=== PATIENT | female | born 1985 | race Caucasian/White ===

== ENCOUNTER 2021-09-20 16:27 | Emergency (ER) | payer OTHER, SELFPAY ==
[2021-09-20 16:35] VITALS: BP 129/87; PULSE 97; RESP 18; TEMP 36.4; O2SAT 100
--- NOTE | 2021-09-20 16:53 | ED.SKABFB ---
HPI - Skin/Abscess/Foreign Bdy General Chief complaint: Skin/Abscess/Foreign Body Stated complaint: swelling in face Source: patient Mode of arrival: ambulatory History of Present Illness HPI narrative: This is a 35-year-old female with history of hep C presents with a lesion on the right side of her face that is firm tender warm to touch with no drainage has had low-grade fevers has tried [id number] ibuprofen with some moderate relief there is no no drainage from the the abscess site there is no submandibular swelling no nausea vomiting no blurry vision. Onset (ago): day(s) Location: face Severity: mild Related Data Home Medications Medication Instructions Recorded Confirmed insulin glargine 100 unit/mL (3 25 ea subcut BID 09/20/21 09/20/21 mL) subcutaneous pen (Basaglar KwikPen U-100 Insulin) Allergies Allergy/AdvReac Type Severity Reaction Status Date / Time cyclobenzaprine [Flexeril] AdvReac Intermediate Fatigued Verified 09/20/21 16:43 Hydrocodone/Acetaminophen AdvReac Intermediate Nausea Uncoded 09/20/21 16:43 Review of Systems Review of Systems: All systems reviewed & are unremarkable except as noted in HPI and below PMFSH Past Medical History Medical History Hepatitis C Social History Social History Smoking status: Current every day smoker Exam Const: General: healthy appearing and no acute distress Limitations: no limitations HENMT: Head: normal to inspection Other: small firm lesion right side of face that is tender with currently no drainage and warm to touch. Eyes: Conjunctivae: conjunctivae normal Pupils: Equal, round and reactive pupils present EOM: EOMs intact bilaterally Direct Ophthalmoscopy: no photophobia Neck: Neck: normal visual inspection, no lymphadenopathy and lymphadenopathy Chest: Chest palpation & inspection: normal inspection of the chest Resp: Effort & Inspection: normal respiratory effort Auscultation: clear to auscultation bilaterally Cardio: Rate: regular rate Rhythm: regular rhythm GI: Auscultation: normal bowel sounds Skin: Other: Firm lesion/ abscess right side of face that is warm and tender to touch with currently no drainage. Neuro: General: patient oriented x3, moves all extremities, no meningeal signs and no focal motor deficits Extrem: General: normal to inspection Psych: Mental Status: mental status grossly normal Course TALCER/PA Physician Supervision Patient received a dose of ceftriaxone 1g IM advised to take medicine and follow-up with primary care physician if symptoms persist or worsen. Vital Signs Vital signs: Vital Signs Temperature 36.4 C L 09/20/21 16:35 Pulse Rate 97 09/20/21 16:35 Respiratory Rate 18 09/20/21 16:35 Blood Pressure 129/87 09/20/21 16:35 Pulse Oximetry 100 09/20/21 16:35 Oxygen Delivery Room Air 09/20/21 16:35 Temperature 36.4 C L 09/20/21 16:35 Pulse Rate 97 09/20/21 16:35 Respiratory Rate 18 09/20/21 16:35 Blood Pressure 129/87 09/20/21 16:35 Pulse Oximetry 100 09/20/21 16:35 Oxygen Delivery Room Air 09/20/21 16:35 Critical Care Time Critical Care Time Critical Care Time: No Discharge Plan Discharge Clinical Impression: Abscess of skin or subcutaneous tissue Qualifiers: Site of cutaneous abscess: face Qualified Code(s): L02.01 - Cutaneous abscess of face Cellulitis Qualifiers: Site of cellulitis: face Qualified Code(s): L03.211 - Cellulitis of face Patient Disposition: Home, Self-Care Condition: Stable Instructions: Antibiotic Form, Cellulitis (ED), Abscess (ED) Additional Instructions: Take medicine as prescribed and follow-up with primary care physician if symptoms persist or worsen. Prescriptions: New amoxicillin-pot clavulanate [Augmentin] 500-125 mg tablet 1 tablet PO TID Qty: 30 0RF mupirocin 2 %
[2021-09-20] MEDS: cefTRIAXone 1 GM VIAL IM (16:55)
== END 2021-09-20 17:03 | disposition home or self-care (01) ==
PROVIDERS: Emergency Provider Emergency Medicine; PCP Nurse Practitioner
DX: L02.01 Cutaneous abscess of face (principal); Z72.0 Tobacco use
CPT/HCPCS: 96372; 99283; J0696

== ENCOUNTER 2021-11-21 23:27 | Emergency (ER) | payer OTHER, SELFPAY ==
[2021-11-21 23:43] VITALS: BP 150/95; PULSE 109; RESP 16; TEMP 36.6; O2SAT 99
--- NOTE | 2021-11-21 23:44 | ED.SKABFB ---
HPI - Skin/Abscess/Foreign Bdy General Chief complaint: Skin/Abscess/Foreign Body Stated complaint: Rash Time Seen by Provider: 11/21/21 23:44 Source: patient Mode of arrival: ambulatory History of Present Illness HPI narrative: 35-year-old female with a history of methamphetamine abuse, smoker, hepatitis-C, diabetes mellitus, HPV, recurrent cellulitis, chronic anemia from menorrhagia presents to the ER with -- multiple 1-2 cm papule/plaques which are painful. She presents with 2 papules over her right suprascapular region, Right foot 2nd toe and 1 in the left medial thigh. She has multiple scars of forearms and legs from eruptive lesions with subsequent itching. she has had these lesions for months. -- decreased sensation over the soles of her feet MD complaint: rash Onset (ago): month(s) Tetanus up to date: yes Location: generalized Severity: mild Quality: burning and aching Pain Consistency: constant Relieving factors: none Exacerbating factors: none Context: none Associated symptoms: denies other symptoms Treatments prior to arrival: none Related Data Home Medications Medication Instructions Recorded Confirmed insulin glargine 100 unit/mL (3 100 unit subcut DAILY 11/21/21 11/21/21 mL) subcutaneous pen (Basaglar KwikPen U-100 Insulin) insulin lispro 100 unit/mL 100 unit subcut DAILY 11/21/21 11/21/21 subcutaneous pen (Humalog KwikPen (U-100) Insulin) Allergies Allergy/AdvReac Type Severity Reaction Status Date / Time cyclobenzaprine [Flexeril] AdvReac Intermediate Fatigued Verified 11/21/21 23:51 Hydrocodone/Acetaminophen AdvReac Intermediate Nausea Uncoded 11/21/21 23:51 Review of Systems Review of Systems: All systems reviewed & are unremarkable except as noted in HPI and below Constitutional: Constitutional: Reports as per HPI, Reports no additional constitutional complaints and Reports weakness Eyes: Eyes: Reports as per HPI and Reports no additional eye complaints ENT: Reports system reviewed and no additional complaints, except as documented and Reports as per HPI Cardiovascular: Cardiovascular: Reports as per HPI and Reports no additional cardiovascular complaints Respiratory: Respiratory: Reports as per HPI and Reports no additional respiratory complaints Gastrointestinal: Gastrointestinal: Reports as per HPI and Reports no additional gastrointestinal complaints Genitourinary: Genitourinary: Reports no additional female genitourinary complaints, Reports as per HPI and Reports abnormal vaginal bleeding Comments: status post BTL Menorrhagia. LMP 2 weeks ago. Musculoskeletal: Musculoskeletal: Reports no additional musculoskeletal complaints and Reports as per HPI Integumentary/Breasts: Comments: Multiple healed scars of forearms and legs. Multiple 1-2 cm papules/ plaques which are painful and itchy. They are generalized. some are ulcerated in the center. Neurologic: Reports system reviewed and no additional complaints, except as documented and Reports as per HPI Psychiatric: Psychiatric: Reports no additional psychiatric complaints and Reports as per HPI Endocrine: Endocrine: Reports no additional endocrine complaints and Reports as per HPI Comments: She has diabetes mellitus for which she takes Humalog 12 units with each meal and Basaglar 25 units b.i.d. Hematologic/Lymphatic: Hematologic/Lymphatic: Reports no additional hematologic/lymphatic complaints and Reports as per HPI Allergic/Immunologic: Allergic/Immunologic: Reports no additional allergic/immunologic complaints and Reports as per HPI [facility] Past Medical History Medical History (Updated 11/22/21 @ 00:39 by Andrzej De La Torre MD) Hepatitis C Surgical History Surgical History (Updated 11/22/21 @ 00:35 by Andrzej De La Torre MD) History of bilateral tubal ligation Social History Social History Smoking status: Current every day smoker Ex
[2021-11-22 00:06] LABS: Basophils Absolute Auto 0.06 K/mm3 (0.00-0.10); Basophils Percent Auto 1.1 % (0.0-1.0); Eosinophils Absolute Auto 0.16 K/mm3 (0.02-0.50); Eosinophils Percent Auto 2.9 % (1.0-6.0); Hematocrit 26.4 % (35.0-49.0); Hemoglobin 7.5 g/dL (12.0-15.0); Immature Granulocyte Absolute 0.01 K/mm3 (0.00-0.00); Immature Granulocyte Percent A 0.2 % (0.0-0.0); Lymphocytes Absolute Auto 2.18 K/mm3 (1.10-4.50); Mean Corpuscular HGB Conc 28.4 g/dL (32.0-36.0); Mean Corpuscular Hemoglobin 19.3 pg (27.0-31.0); Mean Corpuscular Volume 67.9 fL (78.0-102.0); Mean Platelet Volume 8.9 fl (9.2-11.8); Monocytes Absolute Auto 0.38 K/mm3 (0.10-0.90); Neutrophils Absolute Auto 2.7 K/mm3 (1.7-7.2); Neutrophils Percent Auto 48.8 % (50.0-70.0); Platelet Count Result 334 K/mm3 (150-420); Red Blood Count 3.89 M/mm3 (4.20-5.40); Red Cell Distribution Width 15.9 % (11.6-14.4); White Blood Count 5.5 K/mm3 (4.8-10.8)
[2021-11-22 00:24] LABS: Add Urine Microscopic? YES; Appearance Urine Slightly Cloudy (Clear); Bilirubin Urine Negative (Negative); Blood Urine Negative (Negative); Color Urine Light Yellow (Yellow); Glucose Urine UA 3+ (Negative); Ketones Urine Trace (Negative); Leukocyte Esterase Ur Negative (Negative); Nitrate Urine Positive (Negative); Protein Urine Negative (Negative); Urobilinogen Urine 0.2 mg/dL (0.2-1.0); pH Urine 6.5 (5.0-8.0)
[2021-11-22 00:26] LABS: Alanine Aminotransferase 55 U/L (14-59); Albumin Level 3.3 g/dL (3.4-5.0); Alkaline Phosphatase 88 U/L (46-116); Anion Gap 7 mmol/L (8-16); Aspartate Amino Transferase 29 U/L (15-37); Bilirubin,Total 0.2 mg/dL (0.00-1.00); Blood Urea Nitrogen 11 mg/dL (7-18); Calcium 8.2 mg/dL (8.5-10.1); Carbon Dioxide 26 mmol/L (21-32); Chloride 103 mmol/L (98-108); Estimated Glomerular Filt Rate > 60; Glucose 280 mg/dL (70-99); Osmolality Calculated 291 mOsm/kg (285-295); Potassium 3.7 mmol/L (3.5-5.1); Sodium 136 mmol/L (136-145); Total Protein 6.6 g/dL (6.4-8.2)
[2021-11-22 00:28] LABS: RBC Urine 0-2 /hpf (0-2)
[2021-11-22 00:29] LABS: Bacteria Urine 4+ /hpf; Pregnancy On Board Control Positive; Squamous Epithelial Cell Urine Rare /hpf (Few); Urine Pregnancy Test Negative
[2021-11-22 00:47] LABS: Magnesium 1.7 mg/dL (1.8-2.4)
[2021-11-22 00:58] VITALS: BP 132/88; PULSE 105; RESP 18; O2SAT 98
== END 2021-11-22 00:59 | disposition home or self-care (01) ==
PROVIDERS: Emergency Provider Internal Medicine Critical Care Medicine; PCP Nurse Practitioner
DX: D64.9 Anemia, unspecified (principal); N92.0 Excessive and frequent menstruation with regular cycle; N39.0 Urinary tract infection, site not specified; E11.65 Type 2 diabetes mellitus with hyperglycemia; R21 Rash and other nonspecific skin eruption; L98.9 Disorder of the skin and subcutaneous tissue, unspecified
CPT/HCPCS: 36415; 80053; 81001; 81025; 83735; 85025; 99283

== ENCOUNTER 2022-01-25 17:29 | Outpatient (CLI) | payer OTHER, SELFPAY ==
[2022-01-25 18:04] LABS: Basophils Absolute Auto 0.05 K/mm3 (0.00-0.10); Basophils Percent Auto 0.8 % (0.0-1.0); Eosinophils Absolute Auto 0.13 K/mm3 (0.02-0.50); Eosinophils Percent Auto 2.1 % (1.0-6.0); Hematocrit 28.9 % (35.0-49.0); Hemoglobin 7.8 g/dL (12.0-15.0); Immature Granulocyte Absolute 0.02 K/mm3 (0.00-0.00); Immature Granulocyte Percent A 0.3 % (0.0-0.0); Lymphocytes Absolute Auto 1.67 K/mm3 (1.10-4.50); Lymphocytes Percent Auto 26.9 % (18.0-42.0); Mean Corpuscular Hemoglobin 17.8 pg (27.0-31.0); Mean Corpuscular Volume 66.1 fL (78.0-102.0); Mean Platelet Volume 9.8 fl (9.2-11.8); Monocytes Absolute Auto 0.35 K/mm3 (0.10-0.90); Monocytes Percent Auto 5.6 % (2.0-11.0); Neutrophils Percent Auto 64.3 % (50.0-70.0); Platelet Count Result 383 K/mm3 (150-420); Red Blood Count 4.37 M/mm3 (4.20-5.40); Red Cell Distribution Width 15.6 % (11.6-14.4); White Blood Count 6.2 K/mm3 (4.8-10.8)
[2022-01-25 18:22] LABS: Alanine Aminotransferase 74 U/L (14-59); Albumin Level 3.6 g/dL (3.4-5.0); Alkaline Phosphatase 93 U/L (46-116); Anion Gap 9 mmol/L (8-16); Aspartate Amino Transferase 45 U/L (15-37); Bilirubin,Total 0.1 mg/dL (0.00-1.00); Blood Urea Nitrogen 14 mg/dL (7-18); Calcium 8.5 mg/dL (8.5-10.1); Carbon Dioxide 27 mmol/L (21-32); Chloride 97 mmol/L (98-108); Cholesterol 182 mg/dL (0-200); Estimated Glomerular Filt Rate > 60; Glucose 350 mg/dL (70-99); HDL Direct 51 mg/dL (40-60); LDL Cholesterol Calculated 74 mg/dL (<130); Osmolality Calculated 290 mOsm/kg (285-295); Potassium 3.7 mmol/L (3.5-5.1); Sodium 133 mmol/L (136-145); Total Protein 7.6 g/dL (6.4-8.2); Triglycerides 283 mg/dL (0-150)
[2022-01-25 18:56] LABS: HIV 1 P24 AG Negative (Negative); HIV 1/2 AB Negative (Negative)
[2022-01-29 17:42] LABS: RPR Screen Non-Reactive (Non-Reactive)
== END 2022-01-25 17:30 | disposition home or self-care (01) ==
LOC: CHSLAB 17:32
PROVIDERS: PCP Nurse Practitioner; Visit Provider Nurse Practitioner
DX: Z11.3 Encounter for screening for infections with a predominantly sexual mode of transmission (principal); B19.20 Unspecified viral hepatitis C without hepatic coma; E10.65 Type 1 diabetes mellitus with hyperglycemia; F15.10 Other stimulant abuse, uncomplicated; F31.81 Bipolar II disorder; L01.00 Impetigo, unspecified; Z13.31 Encounter for screening for depression; Z68.21 Body mass index [BMI] 21.0-21.9, adult
CPT/HCPCS: 36415; 80053; 80061; 83036; 85025; 86592; 86703; 87491; 87591

== ENCOUNTER 2022-03-19 11:14 | Emergency (ER) | payer OTHER, SELFPAY ==
[2022-03-19 11:15] VITALS: BP 141/82; PULSE 103; PULSE 108; RESP 18; TEMP 36.8; O2SAT 100
[2022-03-19 11:29] VITALS: BP 141/82; PULSE 108; RESP 18; TEMP 36.8; O2SAT 100
--- NOTE | 2022-03-19 11:34 | ED.LOWEXIN ---
HPI - Extremity Injury (Lower) General Chief Complaint: Extremity Injury, Lower Stated Complaint: LEG IS SWOLLEN Time Seen by Provider: 03/19/22 11:29 History of Present Illness HPI Narrative: pt presents with rednesss and tenderness to the front of her right blackburn for 3 days. Pt denies injury. Pt is diabetic and has been taking insulin as directed but not checking her sugars routinely. Pt denies fever or vomiting. Pt has no pain to posterior calf Related Data Home Medications Medication Instructions Recorded Confirmed insulin glargine 100 unit/mL (3 100 unit subcut DAILY 11/21/21 03/19/22 mL) subcutaneous pen (Basaglar KwikPen U-100 Insulin) insulin lispro 100 unit/mL 100 unit subcut DAILY 11/21/21 03/19/22 subcutaneous pen (Humalog KwikPen (U-100) Insulin) lamotrigine 25 mg tablet 25 mg PO DAILY 03/19/22 03/19/22 Allergies Allergy/AdvReac Type Severity Reaction Status Date / Time cyclobenzaprine [Flexeril] AdvReac Intermediate Fatigued Verified 03/19/22 11:27 Hydrocodone/Acetaminophen AdvReac Intermediate Nausea Uncoded 11/21/21 23:51 Review of Systems Review of Systems: All systems reviewed & are unremarkable except as noted in HPI and below PMFSH Past Medical History Medical History (Updated 03/19/22 @ 11:39 by Stephanie Shah III, DO) Hepatitis C Surgical History Surgical History (Updated 11/22/21 @ 00:35 by Andrzej De La Torre MD) History of bilateral tubal ligation Social History Social History Smoking status: Current every day smoker Exam Const: General: healthy appearing Nutritional Appearance: well nourished Orientation/consciousness: patient oriented x3 Limitations: no limitations Eyes: Conjunctivae: conjunctivae normal EOM: EOMs intact bilaterally Resp: Effort & Inspection: normal respiratory effort Cardio: Rate: regular rate Rhythm: regular rhythm GI: GI Palp: Yes Soft to palpation Auscultation: normal bowel sounds Skin: Other: mild erythema to anterior, no posterior tenderness and no swelling to right leg Neuro: General: patient oriented x3 Cranial nerves: Yes Nystagmus not present Speech: normal speech Extrem: General: no clubbing, cyanosis or edema and no pedal edema Psych: Mental Status: mental status grossly normal Affect: normal affect Attitude: cooperative Course Vital Signs Vital signs: Vital Signs Temperature 98.2 F 03/19/22 11:15 Pulse Rate 108 H 03/19/22 11:15 Respiratory Rate 18 03/19/22 11:15 Blood Pressure 141/82 H 03/19/22 11:15 Pulse Oximetry 100 03/19/22 11:15 Oxygen Delivery Room Air 03/19/22 11:15 Temperature 98.2 F 03/19/22 11:29 Pulse Rate 108 H 03/19/22 11:29 Respiratory Rate 18 03/19/22 11:29 Blood Pressure 141/82 H 03/19/22 11:29 Pulse Oximetry 100 03/19/22 11:29 Oxygen Delivery Room Air 03/19/22 11:29 Discharge Plan Discharge Clinical Impression: Cellulitis Patient Disposition: Home, Self-Care Condition: Stable Instructions: Antibiotic Form, Cellulitis (ED) Prescriptions: New cephalexin 500 mg capsule 500 mg PO Q8H Qty: 30 0RF No Action lamotrigine 25 mg tablet 25 mg PO DAILY insulin lispro [Humalog KwikPen Insulin] 100 unit/mL insulin pen 100 unit SUBCUT DAILY insulin glargine [Basaglar KwikPen U-100 Insulin] 100 unit/mL (3 mL) insulin pen 100 unit SUBCUT DAILY Follow-up/Referrals: Damien,ZAYNAB Bro-BC [Primary Care Provider] -
[2022-03-19 23:29] LABS: Glucose Point of Care 84 mg/dl (65-105)
== END 2022-03-19 11:55 | disposition home or self-care (01) ==
LOC: CHSED 11:47
PROVIDERS: Emergency Provider Emergency Medicine; PCP Nurse Practitioner
DX: L03.115 Cellulitis of right lower limb (principal)
CPT/HCPCS: 82948; 99283

== ENCOUNTER 2022-05-10 16:31 | Emergency (ER) | payer OTHER, SELFPAY ==
[2022-05-10 16:31] VITALS: BP 119/79; PULSE 99; RESP 18; TEMP 36.5; O2SAT 100
[2022-05-10 16:39] VITALS: BP 119/79; PULSE 99; RESP 16; TEMP 36.5; O2SAT 100
--- NOTE | 2022-05-10 16:48 | ED.DENTAL ---
HPI - Dental/Oral General Chief complaint: Dental/Oral Stated complaint: R side tooth pain and facial swelling Time Seen by Provider: 05/10/22 16:48 Source: patient Mode of arrival: ambulatory Limitations: no limitations History of Present Illness HPI Narrative: 36-year-old female with a history of methamphetamine abuse, chronic anemia, diabetes mellitus, hepatitis-C, recurrent cellulitis presents to the ER with -- right upper jaw pain/dental pain. the patient is scheduled to see the dentist for dental extraction. MD Complaint: tooth pain ( Extensive dental caries with extensive missing crowns except 4 Which is decayed and carious) Location: Tooth # (4--) Onset (ago): day(s) Severity: moderate Relieving factors: nothing Exacerbating factors: nothing Context: history of dental caries Associated symptoms: gum swelling Treatment prior to arrival: none Related Data Home Medications Medication Instructions Recorded Confirmed insulin glargine 100 unit/mL (3 100 unit subcut DAILY 11/21/21 05/10/22 mL) subcutaneous pen (Basaglar KwikPen U-100 Insulin) insulin lispro 100 unit/mL 100 unit subcut DAILY 11/21/21 05/10/22 subcutaneous pen (Humalog KwikPen (U-100) Insulin) lamotrigine 25 mg tablet 25 mg PO DAILY 03/19/22 05/10/22 Allergies Allergy/AdvReac Type Severity Reaction Status Date / Time cyclobenzaprine [Flexeril] AdvReac Intermediate Fatigued Verified 05/10/22 16:42 Hydrocodone/Acetaminophen AdvReac Intermediate Nausea Uncoded 05/10/22 16:42 Review of Systems Review of Systems: All systems reviewed & are unremarkable except as noted in HPI and below Constitutional: Constitutional: Reports as per HPI and Reports no additional constitutional complaints Eyes: Eyes: Reports as per HPI and Reports no additional eye complaints ENT: Reports system reviewed and no additional complaints, except as documented and Reports as per HPI Comments: extensive dental caries with right upper jaw/ dental pain Cardiovascular: Cardiovascular: Reports as per HPI and Reports no additional cardiovascular complaints Respiratory: Respiratory: Reports as per HPI and Reports no additional respiratory complaints Gastrointestinal: Gastrointestinal: Reports as per HPI and Reports no additional gastrointestinal complaints Genitourinary: Genitourinary: Reports no additional female genitourinary complaints and Reports as per HPI Musculoskeletal: Musculoskeletal: Reports no additional musculoskeletal complaints and Reports as per HPI Integumentary/Breasts: Skin/Breast: Reports system reviewed and no additional complaints, except as docu and Reports as per HPI Neurologic: Reports system reviewed and no additional complaints, except as documented and Reports as per HPI Psychiatric: Psychiatric: Reports no additional psychiatric complaints and Reports as per HPI Endocrine: Endocrine: Reports no additional endocrine complaints and Reports as per HPI Hematologic/Lymphatic: Hematologic/Lymphatic: Reports no additional hematologic/lymphatic complaints and Reports as per HPI Allergic/Immunologic: Allergic/Immunologic: Reports no additional allergic/immunologic complaints and Reports as per HPI [facility] Past Medical History Medical History Hepatitis C Surgical History Surgical History History of bilateral tubal ligation Social History Social History Smoking status: Current every day smoker Exam Const: General: no acute distress Nutritional Appearance: well nourished Orientation/consciousness: patient oriented x3 Limitations: no limitations HENMT: Head: normal to inspection Ears: external ears normal Face/Nose/Sinus: Normal external nose present Face and sinus: normal facial exam Mouth: Yes Normal oral and palatal mucosa present Teeth and gingiva: dentition
[2022-05-10] MEDS: HYDROcodone/acetaminophen (*CRX) 5-325 MG TABLET 1 TAB PO (17:24)
[2022-05-10 17:32] VITALS: BP 121/68; PULSE 100; RESP 16; TEMP 36.4; O2SAT 100
== END 2022-05-10 17:34 | disposition home or self-care (01) ==
PROVIDERS: Emergency Provider Internal Medicine Critical Care Medicine; PCP Nurse Practitioner
DX: K02.9 Dental caries, unspecified (principal); K08.89 Other specified disorders of teeth and supporting structures; E11.9 Type 2 diabetes mellitus without complications; Z79.4 Long term (current) use of insulin; Z86.19 Personal history of other infectious and parasitic diseases; F17.200 Nicotine dependence, unspecified, uncomplicated
CPT/HCPCS: 99283; A9270

== ENCOUNTER 2022-07-08 04:35 | Emergency (ER) | payer OTHER, SELFPAY ==
[2022-07-08 04:35] VITALS: BP 140/100; PULSE 87; RESP 18; TEMP 36.6; O2SAT 100
[2022-07-08] MEDS: methylPREDNISolone SOD SUCC 125 MG VIAL IM (04:52)
--- NOTE | 2022-07-08 04:58 | ED.ALLEREA ---
HPI - Allergic Reaction General Chief complaint: Allergic Reaction Stated complaint: wrist are swollen Time Seen by Provider: 07/08/22 04:57 Source: patient and RN notes reviewed Mode of arrival: ambulatory Limitations: no limitations History of Present Illness complaint: allergic reaction Onset (ago): day(s) (3) Exposure: other (new gloves at work) Symptoms: itching and other (swelling of hands Nothing seems to make it better or worse) Severity: moderate Treatment prior to arrival: benadryl Previous Allergic Reaction History: none Related Data Home Medications Medication Instructions Recorded Confirmed insulin glargine 100 unit/mL (3 35 unit subcut BID 11/21/21 07/08/22 mL) subcutaneous pen (Basaglar KwikPen U-100 Insulin) insulin lispro 100 unit/mL 12 unit subcut TIDWMEAL 11/21/21 07/08/22 subcutaneous pen (Humalog KwikPen (U-100) Insulin) hydroxyzine pamoate 25 mg capsule 25 mg PO PRN PRN Anxiety 07/08/22 07/08/22 lamotrigine 200 mg tablet 200 mg PO DAILY 07/08/22 07/08/22 Allergies Allergy/AdvReac Type Severity Reaction Status Date / Time cyclobenzaprine [Flexeril] AdvReac Intermediate Fatigued Verified 05/10/22 16:42 Hydrocodone/Acetaminophen AdvReac Intermediate Nausea Uncoded 05/10/22 16:42 Review of Systems Review of Systems: All systems reviewed & are unremarkable except as noted in HPI and below PMFSH Past Medical History Medical History Hepatitis C Surgical History Surgical History History of bilateral tubal ligation Social History Social History Smoking status: Current every day smoker Exam Const: General: healthy appearing, no acute distress and alert Nutritional Appearance: well nourished Orientation/consciousness: patient oriented x3 Limitations: no limitations Other: 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 HENMT: Head: normal to inspection Ears: external ears normal Face/Nose/Sinus: Normal external nose present Face and sinus: normal facial exam Mouth: Yes moist mucous membranes Eyes: Conjunctivae: conjunctivae normal Pupils: Equal, round and reactive pupils present EOM: EOMs intact bilaterally Neck: Neck: normal visual inspection Resp: Effort & Inspection: normal respiratory effort Auscultation: clear to auscultation bilaterally Cardio: Rate: regular rate Rhythm: regular rhythm GI: GI Palp: Yes Soft to palpation and No Tenderness to palpation present (GI) Auscultation: normal bowel sounds Back/Spine/Pelvis: Cervical Spine: cervical ROM normal Thoracic/Lumbar Spine: thoraco-lumbar ROM normal Skin: General skin exam: normal color Rashes: rashes noted ( Fluid to bilateral hands and up to the wrists.) urticaria bilateral hand arrangement, color blanching and red and morphology Neuro: General: patient oriented x3, moves all extremities, no focal motor deficits and CN's II-XI intact bilaterally Speech: normal speech Gait exam (Neuro): Normal gait present Extrem: General: normal to inspection and no clubbing, cyanosis or edema Psych: Mental Status: mental status grossly normal Affect: normal affect Attitude: cooperative Course Vital Signs Vital signs: Vital Signs Temperature 36.6 C 07/08/22 04:35 Pulse Rate 87 07/08/22 04:35 Respiratory Rate 18 07/08/22 04:35 Blood Pressure 140/100 H 07/08/22 04:35 Pulse Oximetry 100 07/08/22 04:35 Oxygen Delivery Room Air 07/08/22 04:35 Temperature 36.6 C 07/08/22 04:35 Pulse Rate 77 07/08/22 05:13 Respiratory Rate 18 07/08/22 05:13 Blood Pressure 138/89 07/08/22 05:13 Pulse Oximetry 99 07/08/22 05:13 Oxygen Delivery Room Air 07/08/22 05:13 MDM - Allergic Reaction Differential Diagnosis Differential diagnosis: Likely allergic reaction, angioedema, contact dermatitis and urticaria Discharge Plan [facility]
[2022-07-08 05:13] VITALS: BP 138/89; PULSE 77; RESP 18; O2SAT 99
== END 2022-07-08 05:15 | disposition home or self-care (01) ==
PROVIDERS: Emergency Provider Emergency Medicine; PCP Nurse Practitioner
DX: T78.40XA Allergy, unspecified, initial encounter (principal); F17.200 Nicotine dependence, unspecified, uncomplicated; Z79.4 Long term (current) use of insulin
CPT/HCPCS: 96372; 99283; J2930

== ENCOUNTER 2022-09-21 18:10 | Emergency (ER) | payer OTHER, SELFPAY ==
--- NOTE | ~2022-09-21 | CT_ITS ---
EXAMINATION: CTA chest PE protocol DATE: 09/21/2022 19:30 INDICATION: Shortness of breath and chest pain with elevated d-dimer TECHNIQUE: Computed tomography (CT) pulmonary angiogram of the chest was performed with 100 mL Omnipa que-350 intravenous contrast. Additional 3D reconstructions utilizing coronal maximum intensity proje ction (MIP) were performed. Automated exposure control and iterative reconstruction technique were em ployed. The dose-length product was 184.89 mGy-cm. COMPARISON: None FINDINGS: Excellent contrast opacification of the pulmonary arteries. There is mild streak artifact from dense contrast in the superior vena cava and right atrium. Mild motion artifact in the left lower lung zone which does not significantly limit evaluation. No pulmonary embolism. No pneumonia, pulmonary edema pleural effusion or pneumothorax. Heart size is normal. No pericardial effusion. Thoracic aorta is no rmal in caliber with no dissection. No pathologically enlarged thoracic lymphadenopathy. Visualized u pper abdomen is unremarkable. Mild S-shaped curvature of the thoracic spine with mild spondylosis. IMPRESSION: 1. No pulmonary embolism or other acute cardiopulmonary disease. Reviewed, dictated and finalized at location A.
--- NOTE | ~2022-09-21 | XR_ITS ---
EXAMINATION: XR chest 2V DATE: 09/21/2022 18:45 INDICATION: Shortness of breath, chest tightness, weakness and tingling in the extremities TECHNIQUE: PA and lateral views of the chest were obtained. COMPARISON: None FINDINGS: The lungs are clear with no focal airspace opacities, pulmonary edema, pleural effusion or pneumothor ax. The cardiomediastinal silhouette is normal. Mild thoracolumbar levocurvature with mild thoracic s pondylosis. IMPRESSION: 1. No acute cardiopulmonary disease. Reviewed, dictated and finalized at location A.
[2022-09-21 18:13] VITALS: BP 131/84; PULSE 98; RESP 18; TEMP 36.6; O2SAT 99
[2022-09-21 18:16] VITALS: BP 131/84; PULSE 98; RESP 16; TEMP 36.6; O2SAT 99
--- NOTE | 2022-09-21 18:18 | ECG_ITS ---
Measurements Intervals [place] Rate: 106 P: 78 TX: 133 QRS: 79 QRSD: 84 T: 62 QT: 343 QTc: 457 Interpretive Statements SINUS TACHYCARDIA POSSIBLE RIGHT ATRIAL ENLARGEMENT LEFT ATRIAL ENLARGEMENT BORDERLINE ECG NO PREVIOUS ECG AVAILABLE FOR COMPARISON Electronically Signed On 09-22-2022 7:12:56 CDT by Pérez Romero D.O.
[2022-09-21 18:43] LABS: Basophils Absolute Auto 0.08 K/mm3 (0.00-0.10); Basophils Percent Auto 0.8 % (0.0-1.0); Hematocrit 33.7 % (35.0-49.0); Hemoglobin 10.3 g/dL (12.0-15.0); Immature Granulocyte Absolute 0.03 K/mm3 (0.00-0.00); Immature Granulocyte Percent A 0.3 % (0.0-0.0); Lymphocytes Absolute Auto 1.74 K/mm3 (1.10-4.50); Lymphocytes Percent Auto 18.2 % (18.0-42.0); Mean Corpuscular HGB Conc 30.6 g/dL (32.0-36.0); Mean Corpuscular Hemoglobin 21.8 pg (27.0-31.0); Mean Corpuscular Volume 71.4 fL (78.0-102.0); Mean Platelet Volume 9.3 fl (9.2-11.8); Monocytes Absolute Auto 0.74 K/mm3 (0.10-0.90); Monocytes Percent Auto 7.8 % (2.0-11.0); Neutrophils Absolute Auto 6.9 K/mm3 (1.7-7.2); Neutrophils Percent Auto 71.9 % (50.0-70.0); Platelet Count Result 477 K/mm3 (150-420); Red Blood Count 4.72 M/mm3 (4.20-5.40); White Blood Count 9.5 K/mm3 (4.8-10.8)
[2022-09-21 18:49] VITALS: O2SAT 100
[2022-09-21 19:00] VITALS: BP 116/87; PULSE 98; O2SAT 99
[2022-09-21 19:05] LABS: Alanine Aminotransferase 54 U/L (14-59); Albumin Level 3.8 g/dL (3.4-5.0); Alkaline Phosphatase 107 U/L (46-116); Anion Gap 13 mmol/L (8-16); Aspartate Amino Transferase 30 U/L (15-37); Bilirubin,Total 0.3 mg/dL (0.00-1.00); Blood Urea Nitrogen 12 mg/dL (7-18); Calcium 9.1 mg/dL (8.5-10.1); Carbon Dioxide 26 mmol/L (21-32); Chloride 101 mmol/L (98-108); Estimated CRCL calculation 50 ml/min; Estimated Glomerular Filt Rate 51; Glucose 96 mg/dL (70-99); NT Pro B Type Natriuretic Pept 67 pg/mL (0-125); Osmolality Calculated 289 mOsm/kg (285-295); Potassium 3.5 mmol/L (3.5-5.1); Sodium 140 mmol/L (136-145); Total Protein 7.6 g/dL (6.4-8.2)
[2022-09-21 19:06] LABS: Troponin I < 4.0 ng/L (0.00-60.4)
[2022-09-21] MEDS: SODIUM CHLORIDE 0.9% IV 1,000 ML 999 ML IV CONT (19:15)
--- NOTE | 2022-09-21 20:00 | ED.CHESTPAIN ---
HPI - Chest Pain General Chief Complaint: Chest Pain Stated Complaint: SOB Time Seen by Provider: 09/21/22 18:14 Source: patient Mode of arrival: ambulatory Limitations: no limitations History of Present Illness HPI narrative: this is 36-year-old female with some past medical history of drug abuse that presents with anxiety numbness and tingling in her hands with shortness of breath chest pressure with some no audible wheezing no fever chills no nausea vomiting no abdominal pain no flank pain no dysuria no hematuria, there is no cough or congestion. MD complaint: chest discomfort Prior episodes: Yes Onset: during exertion Related Data Home Medications Medication Instructions Recorded Confirmed insulin glargine 100 unit/mL (3 35 unit subcut BID 11/21/21 09/21/22 mL) subcutaneous pen (Basaglar KwikPen U-100 Insulin) insulin lispro 100 unit/mL 12 unit subcut TIDWMEAL 11/21/21 09/21/22 subcutaneous pen (Humalog KwikPen (U-100) Insulin) Allergies Allergy/AdvReac Type Severity Reaction Status Date / Time cyclobenzaprine [Flexeril] AdvReac Intermediate Fatigued Verified 05/10/22 16:42 Hydrocodone/Acetaminophen AdvReac Intermediate Nausea Uncoded 05/10/22 16:42 Review of Systems Review of Systems: All systems reviewed & are unremarkable except as noted in HPI and below PMFSH Past Medical History Medical History Hepatitis C Surgical History Surgical History History of bilateral tubal ligation Social History Social History Smoking status: Current every day smoker Exam Const: General: healthy appearing Nutritional Appearance: well nourished Orientation/consciousness: patient oriented x3 HENMT: Head: normal to inspection Eyes: Conjunctivae: conjunctivae normal Pupils: Equal, round and reactive pupils present Neck: Neck: normal visual inspection Chest: Chest palpation & inspection: normal inspection of the chest Cardio: Rate: regular rate Rhythm: regular rhythm GI: GI Palp: Yes Soft to palpation Auscultation: normal bowel sounds Skin: General skin exam: normal color Rashes: no rashes Wounds: no wounds Neuro: General: patient oriented x3, moves all extremities and no meningeal signs Extrem: General: normal to inspection Psych: Mental Status: mental status grossly normal Affect: normal affect Course Course Emergency Course: Patient received IV fluids and states that her symptoms have improved she appears more comfortable less anxious had an elevated D-dimer and CTA was performed which shows no acute cardiopulmonary abnormality or pulmonary embolism labs reviewed with patient all within normal limits. Vital Signs Vital signs: Vital Signs Temperature 36.6 C 09/21/22 18:13 Pulse Rate 98 09/21/22 18:13 Respiratory Rate 18 09/21/22 18:13 Blood Pressure 131/84 09/21/22 18:13 Pulse Oximetry 99 09/21/22 18:13 Oxygen Delivery Room Air 09/21/22 18:13 Temperature 36.6 C 09/21/22 18:16 Pulse Rate 98 09/21/22 19:00 Respiratory Rate 16 09/21/22 18:16 Blood Pressure 116/87 09/21/22 19:00 Pulse Oximetry 99 09/21/22 19:00 Oxygen Delivery Room Air 09/21/22 18:49 MDM - Chest Pain Lab Data 09/21/22 18:39 09/21/22 18:39 Labs: Lab Results 09/21/22 Range/Units 18:39 WBC 9.5 (4.8-10.8) K/mm3 RBC 4.72 (4.20-5.40) M/mm3 Hgb 10.3 L (12.0-15.0) g/dL Hct 33.7 L (35.0-49.0) % MCV 71.4 L (78.0-102.0) fL MCH 21.8 L (27.0-31.0) pg MCHC 30.6 L (32.0-36.0) g/dL RDW 14.0 (11.6-14.4) % Plt Count 477 H (150-420) K/mm3 MPV 9.3 (9.2-11.8) fl Immature Gran % (Auto) 0.3 H (0.0-0.0) % Neut % (Auto) 71.9 H (50.0-70.0) % Lymph % (Auto) 18.2 (18.0-42.0) % [place] % (Auto) 7.8 (2.0-11.0) % Eos % (Auto) 1.0 (1.0-6.0)
[2022-09-21 20:13] VITALS: BP 129/84; PULSE 95; RESP 18; TEMP 36.7; O2SAT 99
== END 2022-09-21 20:14 | disposition home or self-care (01) ==
PROVIDERS: Emergency Provider Emergency Medicine
DX: R07.89 Other chest pain (principal); F41.1 Generalized anxiety disorder; B19.20 Unspecified viral hepatitis C without hepatic coma; F17.200 Nicotine dependence, unspecified, uncomplicated; Z79.4 Long term (current) use of insulin
CPT/HCPCS: 36415; 71046; 71275; 80053; 83880; 84484; 85025; 85380; 93005; 96360; 99284; J7030; Q9967

== ENCOUNTER 2022-10-26 14:22 | Emergency (ER) | payer OTHER, SELFPAY ==
[2022-10-26 14:22] VITALS: BP 140/95; PULSE 114; RESP 18; TEMP 36.3; O2SAT 100; O2SAT 94
--- NOTE | 2022-10-26 14:48 | ED.SKABFB ---
HPI - Skin/Abscess/Foreign Bdy General Chief complaint: Skin/Abscess/Foreign Body Stated complaint: rash; itching Time Seen by Provider: 10/26/22 14:30 Source: patient and family Mode of arrival: ambulatory Limitations: no limitations History of Present Illness HPI narrative: this is a 36-year-old female that presents with some lesions on her hands her face and her upper back there appears to be some areas of burrowing in her in her skin consistent with scabies, the patient lives with her significant other that has no issues with some rash or lesions, the patient does use meth. And there is itching sensation and the sensation of bugs and along with lesions. No fever chills no chest pain no shortness of breath. complaint: rash Onset (ago): week(s) Related Data Home Medications Medication Instructions Recorded Confirmed insulin glargine 100 unit/mL (3 35 unit subcut BID 11/21/21 10/26/22 mL) subcutaneous pen (Basaglar KwikPen U-100 Insulin) insulin lispro 100 unit/mL 12 unit subcut TIDWMEAL 11/21/21 10/26/22 subcutaneous pen (Humalog KwikPen (U-100) Insulin) Allergies Allergy/AdvReac Type Severity Reaction Status Date / Time cyclobenzaprine [Flexeril] AdvReac Intermediate Fatigued Verified 05/10/22 16:42 Hydrocodone/Acetaminophen AdvReac Intermediate Nausea Uncoded 05/10/22 16:42 Review of Systems Review of Systems: All systems reviewed & are unremarkable except as noted in HPI and below PMFSH Past Medical History Medical History Hepatitis C Surgical History Surgical History History of bilateral tubal ligation Social History Social History Smoking status: Current every day smoker Exam Const: General: healthy appearing, no acute distress and alert Nutritional Appearance: well nourished Limitations: no limitations HENMT: Head: normal to inspection Eyes: Conjunctivae: conjunctivae normal Neck: Neck: normal visual inspection Resp: Effort & Inspection: normal respiratory effort Auscultation: clear to auscultation bilaterally Cardio: Rate: regular rate Rhythm: regular rhythm GI: Auscultation: normal bowel sounds : General: Yes bladder normal to palpation Skin: Wounds: wounds noted Other: Rash along the right side of her face and upper back and her hands with some what could be consistent with some burrowing and scabies. Course Course Emergency Course: I discussed the situation and the rash and itching with the patient and advised her to follow with a drug rehab program since she is on meth but there could be rash consistent with scabies although no one else in the family has similar rash and will treat with ivermectin was sent to her pharmacy. She can take Benadryl [id number] for the itching. Vital Signs Vital signs: Vital Signs Temperature 36.3 C L 10/26/22 14:22 Pulse Rate 114 H 10/26/22 14:22 Respiratory Rate 18 10/26/22 14:22 Blood Pressure 140/95 H 10/26/22 14:22 Pulse Oximetry 100 10/26/22 14:22 Oxygen Delivery Room Air 10/26/22 14:22 Temperature 36.3 C L 10/26/22 14:22 Pulse Rate 114 H 10/26/22 14:22 Respiratory Rate 18 10/26/22 14:22 Blood Pressure 140/95 H 10/26/22 14:22 Pulse Oximetry 94 10/26/22 14:22 Oxygen Delivery Room Air 10/26/22 14:22 Critical Care Time Critical Care Time Critical Care Time: No Discharge Plan Discharge Clinical Impression: Scabies, Methamphetamine abuse Patient Disposition: Home, Self-Care Condition: Stable Instructions: Antibiotic Form, Scabies (ED) Additional Instructions: advised to take medicine as prescribed, and follow with primary can use Benadryl [id number] for itching and advise a drug rehab program to get off methamphetamine. Prescriptions: New ivermectin 0.5 % lotion
[2022-10-26 14:56] VITALS: BP 140/95; PULSE 78; RESP 20; TEMP 36.9; O2SAT 97
== END 2022-10-26 14:58 | disposition home or self-care (01) ==
LOC: CHSED 14:55
PROVIDERS: Emergency Provider Emergency Medicine
DX: B86 Scabies (principal); F15.10 Other stimulant abuse, uncomplicated; F17.200 Nicotine dependence, unspecified, uncomplicated; Z79.4 Long term (current) use of insulin
CPT/HCPCS: 99283

== ENCOUNTER 2023-04-01 19:16 | Emergency (ER) | payer OTHER, SELFPAY ==
[2023-04-01 19:16] VITALS: BP 141/83; PULSE 114; RESP 18; TEMP 36.4; O2SAT 100
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
[2023-04-01] MEDS: methylPREDNISolone SOD SUCC 125 MG VIAL IM (19:39)
[2023-04-01] MEDS: NEOMYCIN/POLYMYXIN/HYDROCORT OT SUSP 10 ML BTL (*BKC) 3 DROP EACH EAR (19:39)
[2023-04-01] MEDS: HYDROcodone/acetaminophen (*CRX) 5-325 MG TABLET 1 TAB PO (19:40)
== END 2023-04-01 20:16 | disposition home or self-care (01) ==
PROVIDERS: Emergency Provider Internal Medicine Critical Care Medicine
DX: H60.92 Unspecified otitis externa, left ear (principal); E11.9 Type 2 diabetes mellitus without complications; F17.200 Nicotine dependence, unspecified, uncomplicated; Z79.4 Long term (current) use of insulin
CPT/HCPCS: 96372; 99283; A9270; J2930

== ENCOUNTER 2023-06-08 12:38 | Emergency (ER) | payer OTHER, SELFPAY ==
[2023-06-08] VITALS (20 sets, daily range): BP systolic 92–147; BP diastolic 52–89; PULSE 115–131; RESP 12–20; TEMP 36.7–37.1; O2SAT 96–100
--- NOTE | ~2023-06-08 | CT_ITS ---
CT of the Abdomen and Pelvis: Indication: Left flank pain Technique: 2.5 mm axial scans were obtained through the abdomen and pelvis following intravenous adm inistration of 100 cc of Omnipaque 350. Dose reduction technique was used on this scan by utilizing a utomated exposure control and iterative reconstruction technique. The dose-length product (DLP) was 2 69.09 mGy-cm. Findings: Scans through the lung bases are unremarkable. The liver, spleen, pancreas, gallbladder, adrenals and right kidney are within normal limits. There i s mildly heterogeneous enhancement of the left kidney. There is mild left hydroureteronephrosis. No e vidence of aortic aneurysm. No lymphadenopathy. No bowel obstruction or bowel wall thickening. There is no evidence to suggest acute appendicitis. Images through the pelvis were performed. Urinary bladder unremarkable. There is an 8.4 cm heterogene ous uterine mass, most likely a large fibroid. A smaller densely calcified fibroid is also present. N o other adnexal mass seen. No ascites. Impression: Mild left hydroureteronephrosis. Correlate with recently passed stone, or possibly ureteral impingeme nt due to enlarged multi fibroid uterus. No definite ureteral stones seen currently. Probable small p elvic phleboliths present. Mildly heterogeneous enhancement of left kidney. This could reflect mildly delayed nephrogram related to the hydronephrosis versus possibly pyonephritis. Correlate with clinical symptoms and urinalysis. Enlarged multi fibroid uterus, as detailed above. Reviewed, dictated and finalized at [facility]. [employer] TE[employer]ER Impression: Mild left hydroureteronephrosis. Correlate with recently passed stone, or possi rc ureteral impingement due to enlarged multi fibroid uterus. No definite uret eral stones seen currently. Probable small pelvic phleboliths present. Mildly heterogeneous enhancement of left kidney. This could reflect mildly riaz yed nephrogram related to the hydronephrosis versus possibly pyonephritis. Fidelia elate with clinical symptoms and urinalysis. Enlarged multi fibroid uterus, as detailed above.
[2023-06-08 12:49] LABS: Glucose Point of Care > 450 mg/dl (65-105)
--- NOTE | 2023-06-08 13:04 | ED.GENADULT ---
HPI - General Adult General Chief complaint: Dental/Oral Stated complaint: dental infection; back pain Time Seen by Provider: 06/08/23 12:44 Source: patient Mode of arrival: ambulatory Limitations: no limitations History of Present Illness HPI narrative: 37 YEARS OLD WHITE FEMALE CAME TO THE EMERGENCY ROOM BY PRIVATE CAR COMPLAINING OF LEFT FLANK PAIN THIS IS FOR THE LAST 3 DAYS, INTERMITTENT, NOT RIGHT NOW. ALSO COMPLAINING OF RIGHT UPPER DENTAL INFECTION WHICH IS CHRONIC WITH INTERMITTENT FLARE-UP, PATIENT RUN OUT OF INSULIN FOR THE LAST 5 DAYS. HISTORY OF DIABETES, HEPATITIS-C,, DRUG ADDICT, LAST SMITH 2 WEEKS AGO, DENIES, TOBACCO DEPENDENT. DENIED ALCOHOL USE Related Data Home Medications Medication Instructions Recorded Confirmed insulin glargine 100 unit/mL (3 35 unit subcut BID 11/21/21 06/08/23 mL) subcutaneous pen (Basaglar KwikPen U-100 Insulin) Allergies Allergy/AdvReac Type Severity Reaction Status Date / Time acetaminophen [From [place]] AdvReac Intermediate Nausea Verified 06/08/23 12:47 cyclobenzaprine [Flexeril] AdvReac Intermediate Fatigued Verified 06/08/23 12:47 hydrocodone [From [place]] AdvReac Intermediate Nausea Verified 06/08/23 12:47 Review of Systems Review of Systems: All systems reviewed & are unremarkable except as noted in HPI and below PMFSH Past Medical History Medical History Hepatitis C Surgical History Surgical History History of bilateral tubal ligation Social History Social History Smoking status: Current every day smoker Exam Narrative: GENERAL APPEARANCE: WELL-DEVELOPED, MALNOURISHED SKIN: NORMAL COLOR HEAD: NORMOCEPHALIC, NONTRAUMATIC EYES: CLEAR CONJUNCTIVA ENT: OROPHARYNX NORMAL, EARS NORMAL, NOSE NORMAL, EXTENSIVE DENTAL DECAY RIGHT UPPER GUM, NO TEETH ANYWHERE ELSE. NECK: SUPPLE, NONTENDER CHEST AND RESPIRATORY: AIRWAY PATENT, NO RESPIRATORY DISTRESS, NO ACCESSORY MUSCLE USE HEART: TACHYCARDIA ABDOMEN: SOFT, NONTENDER, NO ORGANOMEGALY, QUIET BOWEL SOUNDS VASCULAR: NORMAL PERIPHERAL PULSES, NORMAL CAPILLARY REFILL. MUSCULOSKELETAL: NORMAL RANGE OF MOTION, NONTENDER BACK NEUROLOGIC: ALERT AND ORIENTED ?3, SHIPS EQUIPMENT ENGINEER IS NORMAL TESTED, NO GROSS MOTOR DEFICIT Course Vital Signs Vital signs: Vital Signs Temperature 37.1 C 06/08/23 12:39 Pulse Rate 131 H 06/08/23 12:39 Respiratory Rate 20 06/08/23 12:39 Blood Pressure 147/89 H 06/08/23 12:39 Pulse Oximetry 100 06/08/23 12:39 Oxygen Delivery Room Air 06/08/23 12:39 Temperature 36.8 C 06/08/23 16:47 Pulse Rate 128 H 06/08/23 16:47 Respiratory Rate 16 06/08/23 17:05 Blood Pressure 103/55 L 06/08/23 17:05 Pulse Oximetry 98 06/08/23 17:05 Oxygen Delivery Room Air 06/08/23 17:05 Medical Decision Making MDM Narrative Medical decision making narrative: PATIENT PRESENTS WITH DENTAL PAIN, LEFT FLANK PAIN, RUN OUT OF INSULIN OVER THE LAST 5 DAYS. PHYSICAL EXAMINATION SHOWED EXTENSIVE DENTAL CARIES RIGHT UPPER SIDE, NO FLANK TENDERNESS, SLIGHT DIFFUSE ABDOMINAL PAIN DIFFERENTIAL DIAGNOSIS DENTAL INFECTION, URINARY TRACT INFECTION, DIABETIC HYPERGLYCEMIA, NONCOMPLIANCE WITH MEDICATION WORKUP TODAY SHOWED WBC OF 21.6 WITH LEFT SHIFT, HEMOGLOBIN OF 7.6, HISTORY OF SIMILAR NUMBER IN THE LAST FEW VISITS, ABG ON ROOM AIR SHOWED PH OF 7.4 PCO2 3 0 PO2 105, 98.1 SATURATION ON ROOM AIR SODIUM 125 CHLORIDE 89 CREATININE 1.1 GLUCOSE 620 LACTIC ACID 3.0 CALCIUM 7.9 MAGNESIUM 1.5. URINALYSIS POSITIVE NITRATE, IN THE ED PATIENT RECEIVED 2 L OF N
[2023-06-08 13:23] LABS: Base Excess ABG -1.1 mmol/L (0-2); Carboxyhemoglobin 1.3 % (0-1.5); HCO3 ABG 21.9 mmol/L (23-29); Methemoglobin ABG 0.4 % (0-1.5); Oxygen Content ABG 11.9 %vol (16.0-22.0); Oxygen Saturation ABG 98.1 % (95-97); Oxyhemoglobin 96.4 % (94-100); PO2 ABG 105.7 mmHg (80-90); Reduced Hemoglobin 1.9 % (0-1.5); Total Hemoglobin 8.6 g/dL (12.0-18.0); pH ABG 7.48 (7.35-7.45)
[2023-06-08] MEDS: SODIUM CHLORIDE 0.9% IV 1,000 ML 999 ML IV CONT ×2 (13:26→14:26)
[2023-06-08] MEDS: INSULIN HUMAN REGULAR (*BKC) 1,000 UNITS/10 ML VIAL 5 UNITS IV PUSH (13:28)
[2023-06-08] MEDS: INSULIN REG 100 UNITS/100 ML 100 UNITS/100 ML BAG 5.5 UNITS IV CONT (13:28)
[2023-06-08 13:29] LABS: Hematocrit 27.8 % (35.0-49.0); Hemoglobin 7.6 g/dL (12.0-15.0); Mean Corpuscular HGB Conc 27.3 g/dL (32.0-36.0); Mean Corpuscular Hemoglobin 17.3 pg (27.0-31.0); Mean Corpuscular Volume 63.3 fL (78.0-102.0); Mean Platelet Volume 9.7 fl (9.2-11.8); Platelet Count Result 400 K/mm3 (150-420); Red Blood Count 4.39 M/mm3 (4.20-5.40); Red Cell Distribution Width 17.4 % (11.6-14.4)
[2023-06-08 13:41] LABS: Bilirubin Urine Negative (Negative); Blood Urine Trace-Intact (Negative); Color Urine Light Yellow (Yellow); Glucose Urine UA 3+ (Negative); Ketones Urine Negative (Negative); Leukocyte Esterase Ur 1+ LEU/UL (Negative); Nitrate Urine Positive (Negative); Protein Urine 1+ (Negative); Specific Grav Ur <= 1.005 (1.010-1.020); Urobilinogen Urine 0.2 mg/dL (0.2-1.0)
[2023-06-08 13:44] LABS: Alanine Aminotransferase 27 U/L (14-59); Albumin Level 3.1 g/dL (3.4-5.0); Alkaline Phosphatase 124 U/L (46-116); Anion Gap 11 mmol/L (8-16); Aspartate Amino Transferase 14 U/L (15-37); Bilirubin,Total 0.5 mg/dL (0.00-1.00); Blood Urea Nitrogen 11 mg/dL (7-18); Calcium 7.9 mg/dL (8.5-10.1); Carbon Dioxide 25 mmol/L (21-32); Chloride 89 mmol/L (98-108); Estimated CRCL calculation 57 ml/min; Estimated Glomerular Filt Rate 55; Magnesium 1.5 mg/dL (1.8-2.4); Phosphorus 2.8 mg/dL (2.6-4.7); Potassium 3.7 mmol/L (3.5-5.1); Sodium 125 mmol/L (136-145); Total Protein 7.1 g/dL (6.4-8.2)
[2023-06-08 13:48] LABS: Device ROOM AIR; Modified Allen's Test Pass; Site Drawn RIGHT RADIAL
[2023-06-08 13:51] LABS: White Blood Count 21.6 K/mm3 (4.8-10.8)
[2023-06-08 13:52] LABS: Glucose 620 mg/dL (70-99); Osmolality Calculated 288 mOsm/kg (285-295)
[2023-06-08 13:56] LABS: Add Urine Microscopic? YES; Appearance Urine Cloudy (Clear); RBC Urine >100 /hpf (0-2)
[2023-06-08 13:57] LABS: Bacteria Urine 4+ /hpf
[2023-06-08 14:03] LABS: Glucose Point of Care > 450 mg/dl (65-105)
[2023-06-08 14:08] LABS: CRP 6.7 mg/dL (0.0-0.9)
[2023-06-08 14:17] LABS: Pregnancy On Board Control Positive; Urine Pregnancy Test Negative
[2023-06-08 14:53] LABS: Neutrophils Percent Manual 87 % (46-73); Total Cells Counted 100
[2023-06-08 14:54] LABS: Anisocytosis 2+ (NORMAL); Band Neutrophils Percent 0 % (0-6); Hypochromasia 2+ (NORMAL); Lymphocytes Absolute Manual 2.59 K/mm3 (1.1-4.5); Lymphocytes Percent Manual 12 % (18-44); Microcytosis 1+ (NORMAL); Monocytes Absolute Manual 0.21 K/mm3 (0.1-0.90); Monocytes Percent Manual 1 % (3-9); Neutrophils Absolute Manual 18.79 K/mm3 (1.7-7.2); Platelet Clumps Present; Platelet Estimate Adequate (Adequate); Poikilocytosis 2+ (NORMAL)
[2023-06-08 14:55] LABS: Ovalocytes 1+ (NORMAL); Schistocytes Rare (NORMAL); Stomatocytes 1+ (NORMAL)
[2023-06-08 14:59] LABS: Glucose Point of Care 285 mg/dl (65-105)
[2023-06-08] MEDS: ONDANSETRON INJ 4 MG/2 ML VIAL IV PUSH (15:30)
[2023-06-08] MEDS: MORPHINE SULFATE (*CRX) 4 MG/ML INJ IV PUSH (15:30)
[2023-06-08 16:09] LABS: Glucose Point of Care 148 mg/dl (65-105)
[2023-06-08 16:58] LABS: Reflex Lactic Acid Yes or No Add Lactic
[2023-06-08 17:18] LABS: Glucose Point of Care 151 mg/dl (65-105)
[2023-06-09 08:07] LABS: Acetone Negative (Negative)
--- NOTE | 2023-06-10 15:13 | PC.NURSE ---
PRELIMINARY URINE CULTURE RESULTS: ISOLATE 1: GREATER THAN 100,000 CFU/ML OF ESCHERICHIA COLI. RESULTS CALLED TO SHANELL SARAH AT [facility]. [phone] [address]
--- NOTE | 2023-06-11 14:06 | PC.NURSE ---
FINAL URINE CULTURE RESULTS: ISOLATE 1: GREATER THAN 100,000 CFU/ML OF ESCHERICHIA COLI. C&S FAXED TO [phone]. [facility] AT [address]
--- NOTE | 2023-06-15 12:22 | PC.NURSE ---
Final blood culture reports, no growth after 5 days, no further treatment or action needed.
== END 2023-06-08 17:25 | disposition short-term general hospital (02) ==
PROVIDERS: Emergency Provider Emergency Medicine
DX: B19.20 Unspecified viral hepatitis C without hepatic coma (principal); K02.9 Dental caries, unspecified; N39.0 Urinary tract infection, site not specified; E11.65 Type 2 diabetes mellitus with hyperglycemia; F17.200 Nicotine dependence, unspecified, uncomplicated; Z79.4 Long term (current) use of insulin
CPT/HCPCS: 36415; 36600; 74177; 80053; 81001; 81025; 82010; 82375; 82805; 82948; 83050; 83605; 83735; 84100; 85025; 86140; 87040; 87077; 87086; 87088; 87186; 96365; 96366; 96367; 96375; 99285; J0696; J1815; J2270; J2405; J7030; Q9967

== ENCOUNTER 2023-10-05 14:02 | Emergency (ER) | payer OTHER, SELFPAY ==
[2023-10-05] VITALS (30 sets, daily range): BP systolic 109–171; BP diastolic 65–141; PULSE 95–100; RESP 16–17; TEMP 36.6–36.7; O2SAT 93–100
--- NOTE | 2023-10-05 14:06 | ED.GENADULT ---
HPI - General Adult General Chief complaint: Unspecified Stated complaint: withdrawal symptoms from methamphetamine Time Seen by Provider: 10/05/23 14:05 Source: patient and family Mode of arrival: ambulatory Limitations: no limitations History of Present Illness HPI narrative: 37-year-old white female methamphetamine addictive patient last used methamphetamine 3 days ago. went to her mother's house around 12 30 today mother said she was confused but she is not much better now and oriented x4. Patient complains of sleeping a lot for the last 3 days, diarrhea, cramping in her legs as well. Patient said she has had diarrhea constantly this morning had 7 diarrheal stools yesterday. Patient states she has been off her insulin been eating candy. Taking her metformin twice a day. Started on several medications 6 in the last 3 weeks by her providers. Normally she takes Basaglar 30 units in the morning 35 units at night. Patient started on prazosin 1 mg daily at bedtime topiramate 25 mg at bedtime but Modafinil 100 mg in the morning 0 dancer on 4 mg twice a day aripiprazole 5 mg x 1 shot group OP on 150 mg daily metformin 500 mg q.i.d. and then she takes as needed cyclobenzaprine 10 mg twice a day and methocarbamol 750 mg 2-3 times per day. patient denies any nausea vomiting cough sore throat runny nose difficulty breathing. She does have difficulty breathing if she gets up and stands and walks that she feels dizzy like she is going to pass out she has had decreased p.o. intake the last couple days but she says she has been taking water in fine denies any rash or itching bleeding or bruising swelling lumps or bumps. Denies any other pain besides occasional cramps in her legs. Denies any other complaints. Past medical history: Methamphetamine abuse for the last 10 years hepatitis-C vitamin-D deficiency diabetes history of DKA on insulin hypertension anemia (no history of heart disease lung disease kidney disease or thyroid disease. ) Related Data Home Medications Medication Instructions Recorded Confirmed aripiprazole 5 mg tablet 5 mg PO DAILY 10/05/23 10/05/23 bupropion HCl 150 mg 24 hr tablet, 150 mg PO DAILY 10/05/23 10/05/23 extended release metformin 500 mg tablet,extended 500 mg PO QID 10/05/23 10/05/23 release 24 hr modafinil 100 mg tablet 100 mg PO DAILY 10/05/23 10/05/23 ondansetron HCl 4 mg tablet 4 mg PO BID 10/05/23 10/05/23 prazosin 1 mg capsule 1 mg PO DAILY 10/05/23 10/05/23 topiramate 25 mg tablet 25 mg PO DAILY 10/05/23 10/05/23 Allergies Allergy/AdvReac Type Severity Reaction Status Date / Time acetaminophen [From [place]] AdvReac Intermediate Nausea Verified 10/05/23 14:28 cyclobenzaprine [Flexeril] AdvReac Intermediate Fatigued Verified 10/05/23 14:28 hydrocodone [From [place]] AdvReac Intermediate Nausea Verified 10/05/23 14:28 Review of Systems Review of Systems: All systems reviewed & are unremarkable except as noted in HPI and below PMFSH Past Medical History Medical History Hepatitis C Surgical History Surgical History History of bilateral tubal ligation Social History Social History Smoking status: Current every day smoker Exam Narrative: White female patient with no apparent distress.? Head normocephalic, atraumatic.? Eyes conjunctiva pink sclera nonicteric.? Extraocular movements are intact.? Ears externally normal.? Oropharynx is clear with moist mucous membranes without exudates.? Neck is supple nontender no lymphadenopathy.? Back is nontender.? Lungs are clear.? Heart is regular rate and rhythm without murmurs gallops or rubs.? Chest wall nontender.? Back is nontender. Abdomen is soft and nontender no hepatosplenomegaly or masses no CVA tenderness no abdominal bruits.? Extremities no cyanosis clubbing or edema.? Skin is wa
[2023-10-05 14:07] LABS: Glucose Point of Care > 450 mg/dl (65-105)
[2023-10-05] MEDS: SODIUM CHLORIDE 0.9% IV 1,000 ML 999 ML IV CONT ×2 (14:19→15:27)
[2023-10-05] MEDS: LORazepam (*CRX) 1 MG TABLET PO (14:21)
--- NOTE | 2023-10-05 14:40 | PC.NURSE ---
Patient provided outpatient and inpatient resources for rehab.
[2023-10-05 15:04] LABS: Base Excess ABG -3.4 mmol/L (0-2); HCO3 ABG 19.4 mmol/L (23-29); Oxygen Saturation ABG 98.3 % (95-97); Oxyhemoglobin 96.2 % (94-100); PCO2 ABG 26.3 mmHg (35-45); PO2 ABG 127.1 mmHg (80-90); Total Hemoglobin 7.9 g/dL (12.0-18.0); pH ABG 7.49 (7.35-7.45)
[2023-10-05 15:08] LABS: Hematocrit 24.6 % (35.0-49.0); Hemoglobin 7.1 g/dL (12.0-15.0); Mean Corpuscular HGB Conc 28.9 g/dL (32-36); Mean Corpuscular Hemoglobin 18.9 pg (27.0-31.0); Mean Corpuscular Volume 65.6 fL (78.0-102.0); Mean Platelet Volume 9.8 fl (9.2-11.8); Platelet Count Result 306 K/mm3 (150-420); Red Blood Count 3.75 M/mm3 (4.20-5.40); White Blood Count 3.9 K/mm3 (4.8-10.8)
[2023-10-05 15:18] LABS: Device ROOM AIR; Modified Allen's Test Pass; Site Drawn LEFT RADIAL
[2023-10-05 15:22] LABS: Lactic Acid Reflex 1.7 mmol/L (0.4-2.0)
[2023-10-05 15:23] LABS: Acetone Negative (Negative)
[2023-10-05 15:28] LABS: Glucose Point of Care > 450 mg/dl (65-105)
[2023-10-05 15:29] LABS: Alanine Aminotransferase 46 U/L (14-59); Albumin Level 2.9 g/dL (3.4-5.0); Alkaline Phosphatase 87 U/L (46-116); Anion Gap 12 mmol/L (4-12); Aspartate Amino Transferase 22 U/L (15-37); Bilirubin,Total 0.3 mg/dL (0.00-1.00); Blood Urea Nitrogen 12 mg/dL (7-18); Calcium 7.7 mg/dL (8.5-10.1); Carbon Dioxide 21 mmol/L (21-32); Chloride 91 mmol/L (98-108); Estimated Glomerular Filt Rate 59; Magnesium 1.5 mg/dL (1.8-2.4); Potassium 4.4 mmol/L (3.5-5.1); Sodium 124 mmol/L (136-145); Total Protein 6.3 g/dL (6.4-8.2)
[2023-10-05 15:33] LABS: Ethanol < 3 mg/dL (0-6); Glucose 770 mg/dL (70-99); Osmolality Calculated 294 mOsm/kg (285-295)
[2023-10-05] MEDS: INSULIN HUMAN REGULAR (*BKC) 1,000 UNITS/10 ML VIAL 10 UNITS IV PUSH (15:49)
[2023-10-05] MEDS: MAGNESIUM SULF 2 GM/WATER 50ML 2 GM/50 ML BAG IVPB (15:49)
[2023-10-05 16:27] LABS: Glucose Point of Care > 450 mg/dl (65-105)
[2023-10-05 17:06] LABS: Glucose Point of Care 392 mg/dl (65-105)
[2023-10-05 17:48] LABS: Glucose Point of Care 313 mg/dl (65-105)
[2023-10-05 17:57] LABS: Amphetamine Screen Urine Negative (Negative); Barbiturate Screen Urine Negative (Negative); Benzodiazepines Screen Urine Negative (Negative); Cannabinoid Screen Urine Negative (Negative); Cocaine Screen Urine Negative (Negative); Methadone Screen Urine Negative (Negative); Opiate Screen Urine Negative (Negative); Phencyclidine Screen Urine Negative (Negative)
[2023-10-05 18:02] LABS: Appearance Urine Clear (Clear); Bilirubin Urine Negative (Negative); Blood Urine Negative (Negative); Color Urine Light Yellow (Yellow); Glucose Urine UA 3+ (Negative); Ketones Urine Negative (Negative); Leukocyte Esterase Ur Negative LEU/UL (Negative); Nitrate Urine Negative (Negative); Protein Urine Negative (Negative); Specific Grav Ur <= 1.005 (1.010-1.020); Urobilinogen Urine 0.2 mg/dL (0.2-1.0)
[2023-10-05 18:03] LABS: Add Urine Microscopic? NO
== END 2023-10-05 18:13 | disposition home or self-care (01) ==
PROVIDERS: Emergency Provider Emergency Medicine
DX: D64.89 Other specified anemias (principal); E08.65 Diabetes mellitus due to underlying condition with hyperglycemia; E83.42 Hypomagnesemia; F15.10 Other stimulant abuse, uncomplicated; F17.210 Nicotine dependence, cigarettes, uncomplicated; Z79.84 Long term (current) use of oral hypoglycemic drugs; Z79.899 Other long term (current) drug therapy
CPT/HCPCS: 36415; 36600; 80053; 80307; 81003; 82010; 82805; 82948; 83605; 83735; 85027; 96361; 96365; 96366; 96375; 99284; A9270; J1815; J3475; J7030

== ENCOUNTER 2024-01-08 14:30 | Outpatient (CLI) | payer OTHER, SELFPAY ==
[2024-01-08 14:48] LABS: Basophils Absolute Auto 0.07 K/mm3 (0.00-0.10); Basophils Percent Auto 1.4 % (0.0-1.0); Eosinophils Absolute Auto 0.11 K/mm3 (0.02-0.50); Eosinophils Percent Auto 2.2 % (1.0-6.0); Hematocrit 27.2 % (35.0-49.0); Hemoglobin 7.2 g/dL (12.0-15.0); Immature Granulocyte Absolute 0.01 K/mm3 (0.00-0.00); Immature Granulocyte Percent A 0.2 % (0.0-0.0); Immature Reticulocyte Fraction 27.7 % (2.0-16.52); Lymphocytes Absolute Auto 1.74 K/mm3 (1.10-4.50); Lymphocytes Percent Auto 34.5 % (18.0-42.0); Mean Corpuscular HGB Conc 26.5 g/dL (32-36); Mean Corpuscular Hemoglobin 16.9 pg (27.0-31.0); Mean Platelet Volume 8.8 fl (9.2-11.8); Monocytes Absolute Auto 0.43 K/mm3 (0.10-0.90); Monocytes Percent Auto 8.5 % (2.0-11.0); Neutrophils Absolute Auto 2.68 K/mm3 (1.70-7.20); Neutrophils Percent Auto 53.2 % (50.0-70.0); Platelet Count Result 332 K/mm3 (150-420); Red Blood Count 4.25 M/mm3 (4.20-5.40); Red Cell Distribution Width 17.8 % (11.6-14.4); Reticulocyte Hemoglobin Conten 16.1 pg (28.0-35.0); Reticulocyte Percent 1.26 % (0.50-1.50); Reticulocytes Absolute 0.05 M/mm3 (0.02-0.10)
[2024-01-08 17:48] LABS: Creatinine Urine 54.08 mg/dL (40-278); Microalbumin Urine Random < 13.0 mg/L
[2024-01-08 17:56] LABS: Alanine Aminotransferase 63 U/L (14-59); Albumin Level 3.5 g/dL (3.4-5.0); Alkaline Phosphatase 101 U/L (46-116); Anion Gap 8 mmol/L (4-12); Aspartate Amino Transferase 36 U/L (15-37); Bilirubin,Total 0.2 mg/dL (0.00-1.00); Blood Urea Nitrogen 12 mg/dL (7-18); Calcium 8.8 mg/dL (8.5-10.1); Carbon Dioxide 28 mmol/L (21-32); Chloride 101 mmol/L (98-108); Estimated Glomerular Filt Rate 58; Ferritin 3 ng/mL (8-252); Glucose 292 mg/dL (70-99); Iron 14 ug/dL (50-170); Osmolality Calculated 294 mOsm/kg (285-295); Percent Iron Saturation 3 % (12-57); Potassium 4.3 mmol/L (3.5-5.1); Sodium 137 mmol/L (136-145)
[2024-01-09 06:22] LABS: Hemoglobin A1C 11.2 % (<5.7)
[2024-01-09 06:34] LABS: Triglycerides 351 mg/dL (0-150)
[2024-01-09 06:38] LABS: Cholesterol 199 mg/dL (0-200); HDL Direct 48 mg/dL (40-60); LDL Cholesterol Calculated 81 mg/dL (<130)
[2024-01-10 00:34] LABS: Vitamin D 25 Hydroxy 36 ng/mL (30-100)
== END 2024-01-08 14:31 | disposition home or self-care (01) ==
LOC: CHSLAB 14:32
PROVIDERS: PCP Nurse Practitioner Family; Visit Provider Nurse Practitioner Family
DX: E11.9 Type 2 diabetes mellitus without complications (principal); I10 Essential (primary) hypertension; Z79.899 Other long term (current) drug therapy; D64.9 Anemia, unspecified
CPT/HCPCS: 36415; 80053; 80061; 82043; 82306; 82728; 83036; 83540; 83550; 85025; 85046

== ENCOUNTER 2024-01-19 09:36 | Outpatient (CLI) | payer OTHER, SELFPAY ==
[2024-01-19 09:51] VITALS: BP 127/72; PULSE 100; RESP 16; TEMP 36.5; O2SAT 99; BMI 24.1
[2024-01-19] MEDS: IRON SUCROSE COMPLEX 100 MG in SODIUM CHLORIDE 0.9% IV 100 ML 105 MG IVPB (10:00)
[2024-01-19 11:27] VITALS: BP 118/72; PULSE 92; RESP 14; TEMP 36.4; O2SAT 99
--- NOTE | 2024-01-19 11:30 | PC.NURSE ---
Patient here for Venofer infusion #1 of 3. Education given. All concerns voiced answered. Venofer administered. SEE MAR/patient care notes.
== END 2024-01-19 09:37 | disposition home or self-care (01) ==
PROVIDERS: PCP Nurse Practitioner Family; Visit Provider Nurse Practitioner Family
DX: D50.9 Iron deficiency anemia, unspecified (principal)
CPT/HCPCS: 96365; J1756

== ENCOUNTER 2024-01-21 09:47 | Outpatient (CLI) | payer OTHER, SELFPAY ==
[2024-01-21 09:50] VITALS: BP 108/66; PULSE 100; RESP 18; TEMP 36; O2SAT 100; BMI 24.7
[2024-01-21] MEDS: IRON SUCROSE COMPLEX 100 MG in SODIUM CHLORIDE 0.9% IV 100 ML IVPB (11:01)
== END 2024-01-21 12:15 | disposition home or self-care (01) ==
PROVIDERS: PCP Nurse Practitioner Family; Visit Provider Nurse Practitioner Family
DX: D50.9 Iron deficiency anemia, unspecified (principal)
CPT/HCPCS: 96365; J1756

== ENCOUNTER 2024-01-29 10:37 | Outpatient (CLI) | payer OTHER, SELFPAY ==
[2024-01-29 11:07] LABS: Basophils Absolute Auto 0.08 K/mm3 (0.00-0.10); Basophils Percent Auto 1.8 % (0.0-1.0); Eosinophils Percent Auto 4.4 % (1.0-6.0); Hematocrit 31.2 % (35.0-49.0); Hemoglobin 7.8 g/dL (12.0-15.0); Immature Granulocyte Absolute 0.02 K/mm3 (0.00-0.00); Immature Granulocyte Percent A 0.4 % (0.0-0.0); Lymphocytes Absolute Auto 1.74 K/mm3 (1.10-4.50); Lymphocytes Percent Auto 38.2 % (18.0-42.0); Mean Corpuscular Hemoglobin 17.7 pg (27.0-31.0); Mean Corpuscular Volume 70.9 fL (78.0-102.0); Mean Platelet Volume 9.4 fl (9.2-11.8); Monocytes Absolute Auto 0.32 K/mm3 (0.10-0.90); Neutrophils Percent Auto 48.2 % (50.0-70.0); Platelet Count Result 400 K/mm3 (150-420); Red Cell Distribution Width 21.5 % (11.6-14.4); White Blood Count 4.6 K/mm3 (4.8-10.8)
[2024-01-29 11:29] LABS: Iron 13 ug/dL (50-170)
[2024-01-29 11:36] VITALS: BP 116/74; PULSE 80; RESP 18; TEMP 36.1; O2SAT 99
[2024-01-29 11:45] VITALS: BMI 24.5
[2024-01-29] MEDS: IRON SUCROSE COMPLEX 100 MG in SODIUM CHLORIDE 0.9% IV 100 ML IVPB (11:52)
== END 2024-01-29 10:38 | disposition home or self-care (01) ==
PROVIDERS: PCP Nurse Practitioner Family; Visit Provider Nurse Practitioner Family
DX: D50.9 Iron deficiency anemia, unspecified (principal)
CPT/HCPCS: 36415; 83540; 85025; J1756

== ENCOUNTER 2024-04-26 09:45 | Emergency (ER) | payer OTHER, SELFPAY ==
[2024-04-26] VITALS (53 sets, daily range): BP systolic 120–153; BP diastolic 65–103; PULSE 93–113; RESP 17–37; TEMP 36.2; O2SAT 98–100
--- NOTE | ~2024-04-26 | XR_ITS ---
CHEST RADIOGRAPH, PA AND LATERAL CLINICAL HISTORY: diabetic issue/no insulin X 5 days - weak, sob . COMPARISON: 09/21/2022 TECHNIQUE: PA and lateral views of the chest. FINDINGS The cardiomediastinal silhouette is unremarkable. Elevation of the right hemidiaphragm with adjacent compressive atelectasis. Increased interstitial markings within the right middle lobe suggesting a possible early right middle lobe infiltrate for which clinical correlation is needed. Remainder of the lungs are clear. Visualized osseous structures and soft tissues are unremarkable. IMPRESSION: Possible early infiltrate within the right middle lobe, as detailed above. Reviewed, dictated and finalized at location [facility]. [facility] [employer]
--- NOTE | 2024-04-26 09:50 | ED.URI ---
HPI - URI/Sore Throat General Chief Complaint: Upper Respiratory Infection Stated Complaint: COUGH Time Seen by Provider: 04/26/24 09:50 Source: patient Mode of arrival: ambulatory Limitations: no limitations History of Present Illness HPI Narrative: Patient is a 38-year-old female with depression and she stopped all her medicine 5 days ago. She is a type 2 diabetic with insulin using. 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 She is having nausea and vomiting. No pain. She is short of breath. No suicide or homicide ideation. This was not self-harm. She just stopped her medicine with apathy. She is having cough and congestion as well. MD elicited complaint: cough, rhinorrhea and nasal congestion Pertinent past history: other ( Diabetes type 2 with insulin using, depression, anemia) Onset (ago): day(s) (5) Consistency: constant Severity: moderate Pain scale (0-10): 2 Description of mucous: clear and watery Able to tolerate fluids by mouth: No ( patient having nausea vomiting) Exacerbating factors: other ( patient stopped her medications 5 days ago with her depression of apathy) Relieving factors: nothing Context: other ( patient stopped her medications 5 days ago and is having upper respiratory infection) Associated symptoms: rhinorrhea, cough, shortness of breath, nausea and vomiting Treatments prior to arrival: none Related Data Home Medications ?Medication ?Instructions ?Recorded ?Confirmed ?Last Taken ?Type bupropion HCl 150 mg 24 hr tablet, 150 mg PO BID 10/05/23 03/03/24 01/29/24 History extended release modafinil 100 mg tablet 100 mg PO DAILY 10/05/23 03/03/24 01/29/24 History clonidine HCl 0.1 mg tablet 0.1 mg PO TID 01/08/24 03/03/24 01/29/24 History omeprazole 20 mg capsule,delayed 40 mg PO DAILY 04/26/24 Unknown History release prazosin 1 mg capsule 2 mg PO HS 04/26/24 Unknown History topiramate 100 mg tablet 100 mg PO DAILY 04/26/24 Unknown History Allergies Allergy/AdvReac Type Severity Reaction Status Date / Time acetaminophen (From [place]) AdvReac Intermediate Nausea Verified 04/26/24 13:04 hydrocodone (From [place]) AdvReac Intermediate Nausea Verified 12/30/24 13:04 Review of Systems Review of Systems: All systems reviewed & are unremarkable except as noted in HPI and below Constitutional: Constitutional: Reports no additional constitutional complaints Eyes: Eyes: Reports no additional eye complaints ENT: Reports system reviewed and no additional complaints, except as documented Cardiovascular: Cardiovascular: Reports no additional cardiovascular complaints Respiratory: Respiratory: Reports no additional respiratory complaints Gastrointestinal: Gastrointestinal: Reports no additional gastrointestinal complaints Genitourinary: Genitourinary: Reports no additional female genitourinary complaints Musculoskeletal: Musculoskeletal: Reports no additional musculoskeletal complaints Integumentary/Breasts: Skin/Breast: Reports system reviewed and no additional complaints, except as docu Neurologic: Reports system reviewed and no additional complaints, except as documented Psychiatric: Psychiatric: Reports no additional psychiatric complaints Endocrine: Endocrine: Reports no additional endocrine complaints Hematologic/Lymphatic: Hematologic/Lymphatic: Reports no additional hematologic/lymphatic complaints Allergic/Immunologic: Allergic/Immunologic: Reports no additional allergic/immunologic complaints PMFSH Past Medical History Medical History Hepatitis C Surgical History Surgical History History of bilateral tubal ligation Social History Social History Smoking packs per day: 0.5 Smoking cigarettes per day: 10.0 Years smoked: 20 Smoking pack-years: 10.00 Smoking status: Current every day smoker Tobacco type: cigarettes Alcohol intake: current Alcohol use details: Socially Substance use: current Substance use type: methamphetamine Do You Feel Safe in your Home?: Yes Lack of Transportation: YES Lack of Food: Sometimes True Current Housing: I Have Housing Concerned About Future Housing: No Difficulty Paying Gas/Electric Bills: No Difficulty Paying for Meds: No Currently Unemployed: YES Education: Trade/Vocational Certificate Difficulty w/ Childcare or Family Care: No Exam Const: General: ill appearing Nutritional Appearance: thin Orientation/consciousness: patient oriented x3 Limitations: no limitations HENMT: Head: normal to inspection Ears: external ears normal Face/Nose/Sinus: Normal external nose present Eyes: Conjunctivae: conjunctivae normal Pupils: Equal, round and reactive pupils present EOM: EOMs intact bilaterally Neck: Neck: normal visual inspection Chest: Chest palpation & inspection: normal inspection of the chest Resp: Effort & Inspection: normal respiratory effort and not labored Auscultation: clear to auscultation bilaterally and no crackles Cardio: Rate: regular rate Rhythm: regular rhythm Heart sounds: no murmurs GI: Inspection: non-distended GI Palp: Yes Soft to palpation and No Tenderness to palpation present (GI) Auscultation: normal bowel sounds : General: Yes bladder normal to palpation Back/Spine/Pelvis: Back: no CVA tenderness Skin: General skin exam: normal color Rashes: no rashes Wounds: no wounds Other: prior track giles from IVDA and scarring Neuro: General: patient oriented x3 Cranial nerves: Yes Nystagmus not present Speech: normal speech Gait exam (Neuro): Normal gait present Extrem: General: normal to inspection Psych: Mental Status: mental status grossly normal Affect: normal affect Attitude: cooperative Course Vital Signs Vital signs: Vital Signs Temperature 36.2 C L 04/26/24 09:45 Pulse Rate 113 H 04/26/24 09:45 Respiratory Rate 22 H 04/26/24 09:45 Blood Pressure 137/96 H 04/26/24 09:45 Pulse Oximetry 100 04/26/24 09:45 Oxygen Delivery Room Air 04/26/24 09:45 Temperature 36.2 C L 04/26/24 09:45 Pulse Rate 97 04/26/24 14:45 Respiratory Rate 17 04/26/24 14:45 Blood Pressure 129/75 04/26/24 14:45 Pulse Oximetry 100 04/26/24 14:45 Oxygen Delivery Room Air 04/26/24 14:45 Procedures Other Procedure Procedure 1: Other Procedure: I placed a left EJ 18 gauge at this time due to the fact that she was prior IVDA and difficult peripheral IV sites; area was cleaned with chlorhexidine and external jugular was located and an 18 gauge needle was placed on 1st attempt with good flow ; area was cleaned and sterile dressing applied MDM - URI/Sore Throat MDM Narrative Medical decision making narrative: patient is a 38-year-old female with diabetes type 2 insulin using and possibly converted to a type 1 for IUD from IVDA per history. She will be treated for DKA like changes and we will also address the URI. She will get a cardiac and shortness of breath workup at this time as well as the majority of the problem which is stopping all her medicines 5 days ago. She also has hep C. Lab Data Attestation: I reviewed the patient's lab results. 04/26/24 10:13 04/26/24 13:04 Labs: Lab Results 04/26/24 04/26/24 04/26/24 Range/Units 09:49 09:54 10:13 WBC 20.0 H* (4.8-10.8) K/mm3 RBC 4.56 (4.20-5.40) M/mm3 Hgb 11.0 L (12.0-15.0) g/dL Hct 35.5 (35.0-49.0) % MCV 77.9 L (78.0-102.0) fL MCH 24.1 L (27.0-31.0) pg MCHC 31.0 L (32-36) g/dL RDW 18.8 H (11.6-14.4) % Plt Count 390 (150-420) K/mm3 MPV 9.7 (9.2-11.8) fl Immature Gran % (Auto) Not Reportable Neut % (Auto) Not Reportable Lymph % (Auto) Not Reportable [place] % (Auto) Not Reportable Eos % (Auto) Not Reportable Baso % (Auto) Not Reportable Lymph # (Auto) Not Reportable [place] # (Auto) Not Reportable Eos # (Auto) Not Reportable Baso # (Auto) Not Reportable Abs Immat Gran (auto) Not Reportable Absolute Neuts (auto) Not Reportable Absolute Nucleated RBC Not Reportable Total Counted 100 Neutrophils % (Manual) 85 H (46-73) % Band Neutrophils % 1 (0-6) % Lymphocytes % (Manual) 3 L (18-44) % Monocytes % (Manual) 10 H (3-9) % Eosinophils % (Manual) 1 (1-6) % Nucleated RBC % Not Reportable Abs Neuts (Manual) 17.20 H (1.7-7.2) K/mm3 Abs Lymphs (Manual) 0.60 L (1.1-4.5) K/mm3 Abs Monocytes (Manual) 2.00 H (0.1-0.90) K/mm3 Absolute Eos (Manual) 0.20 (0.02-0.50) K/mm3 Platelet Estimate Adequate (Adequate) Schistocytes Not Reportable Sodium 123 L (136-145) mmol/L Potassium 3.9 (3.5-5.1) mmol/L Chloride 86 L (98-108) mmol/L Carbon Dioxide 7 L (21-32) mmol/L Anion Gap 30 H (4-12) mmol/L BUN 19 H (7-18) mg/dL Creatinine 1.31 H (0.55-1.02) mg/dL Estim Creat Clear Calc 50 ml/min Estimated GFR 45 L (59 - ) Glucose 597 H* (70-99) mg/dL POC Capillary Glucose > 450 H (65-105) mg/dl Hemoglobin A1c 12.5 H (<5.7) % Calculated Osmolality 286 (285-295) mOsm/kg Lactic Acid (0.4-2.0) mmol/L Calcium 8.7 (8.5-10.1) mg/dL Total Bilirubin 0.7 (0.00-1.00) mg/dL AST 18 (15-37) U/L ALT 31 (14-59) U/L Alkaline Phosphatase 170 H (46-116) U/L Troponin I 4.6 (0.00-60.4) ng/L Total Protein 7.9 (6.4-8.2) g/dL Albumin 3.4 (3.4-5.0) g/dL Urine Color Light yellow (Yellow) Urine Appearance Clear (Clear) Urine pH 5.5 (5.0-8.0) Ur Specific [place] >= 1.030 H (1.010-1.020) Urine Protein Trace H (Negative) Urine Glucose (UA) 3+ H (Negative) Urine Ketones 3+ H (Negative) Ur Blood (Man) Trace-intact H (Negative) Urine Nitrate Negative (Negative) Urine Bilirubin Negative (Negative) Urine Urobilinogen 0.2 (0.2-1.0) mg/dL Leukocyte Esterase Rfl Negative (Negative) SHAHID/UL Urine RBC 0-2 (0-2) /hpf Urine WBC None seen (0-3) /hpf Ur Squamous Epith Cells Few (Few) /hpf Urine Bacteria 1+ H (None) /hpf Urine Test Negative Acetone Level Moderate A (Negative) Influenza A (RT-PCR) Negative (Negative) Influenza B (RT-PCR) Negative (Negative) RSV (RT-PCR) Negative (Negative) SARS-CoV-2 RNA (RT-PCR) Negative (Negative) 04/26/24 04/26/24 04/26/24 Range/Units 10:25 11:32 12:57 WBC (4.8-10.8) K/mm3 RBC (4.20-5.40) M/mm3 Hgb (12.0-15.0) g/dL Hct (35.0-49.0) % MCV (78.0-102.0) fL MCH (27.0-31.0) pg MCHC (32-36) g/dL RDW (11.6-14.4) % Plt Count (150-420) K/mm3 MPV (9.2-11.8) fl Immature Gran % (Auto) Neut % (Auto) Lymph % (Auto) [place] % (Auto) Eos % (Auto) Baso % (Auto) Lymph # (Auto) [place] # (Auto) Eos # (Auto) Baso # (Auto) Abs Immat Gran (auto) Absolute Neuts (auto) Absolute Nucleated RBC Total Counted Neutrophils % (Manual) (46-73) % Band Neutrophils % (0-6) % Lymphocytes % (Manual) (18-44) % Monocytes % (Manual) (3-9) % Eosinophils % (Manual) (1-6) % Nucleated RBC % Abs Neuts (Manual) (1.7-7.2) K/mm3 Abs Lymphs (Manual) (1.1-4.5) K/mm3 Abs Monocytes (Manual) (0.1-0.90) K/mm3 Absolute Eos (Manual) (0.02-0.50) K/mm3 Platelet Estimate (Adequate) Schistocytes Sodium (136-145) mmol/L Potassium (3.5-5.1) mmol/L Chloride (98-108) mmol/L Carbon Dioxide (21-32) mmol/L Anion Gap (4-12) mmol/L BUN (7-18) mg/dL Creatinine (0.55-1.02) mg/dL Estim Creat Clear Calc ml/min Estimated GFR (59 - ) Glucose (70-99) mg/dL POC Capillary Glucose > 450 H 405 H (65-105) mg/dl Hemoglobin A1c (<5.7) % Calculated Osmolality (285-295) mOsm/kg Lactic Acid 1.1 (0.4-2.0) mmol/L Calcium (8.5-10.1) mg/dL Total Bilirubin (0.00-1.00) mg/dL AST (15-37) U/L ALT (14-59) U/L Alkaline Phosphatase (46-116) U/L Troponin I (0.00-60.4) ng/L Total Protein (6.4-8.2) g/dL Albumin (3.4-5.0) g/dL Urine Color (Yellow) Urine Appearance (Clear) Urine pH (5.0-8.0) Ur Specific [place] (1.010-1.020) Urine Protein (Negative) Urine Glucose (UA) (Negative) Urine Ketones (Negative) Ur Blood (Man) (Negative) Urine Nitrate (Negative) Urine Bilirubin (Negative) Urine Urobilinogen (0.2-1.0) mg/dL Leukocyte Esterase Rfl (Negative) SHAHID/UL Urine RBC (0-2) /hpf Urine WBC (0-3) /hpf Ur Squamous Epith Cells (Few) /hpf Urine Bacteria (None) /hpf Urine Test Acetone Level (Negative) Influenza A (RT-PCR) (Negative) Influenza B (RT-PCR) (Negative) RSV (RT-PCR) (Negative) SARS-CoV-2 RNA (RT-PCR) (Negative) 04/26/24 04/26/24 04/26/24 Range/Units 13:04 13:31 14:19 WBC (4.8-10.8) K/mm3 RBC (4.20-5.40) M/mm3 Hgb (12.0-15.0) g/dL Hct (35.0-49.0) % MCV (78.0-102.0) fL MCH (27.0-31.0) pg MCHC (32-36) g/dL RDW (11.6-14.4) % Plt Count (150-420) K/mm3 MPV (9.2-11.8) fl Immature Gran % (Auto) Neut % (Auto) Lymph % (Auto) [place] % (Auto) Eos % (Auto) Baso % (Auto) Lymph # (Auto) [place] # (Auto) Eos # (Auto) Baso # (Auto) Abs Immat Gran (auto) Absolute Neuts (auto) Absolute Nucleated RBC Total Counted Neutrophils % (Manual) (46-73) % Band Neutrophils % (0-6) % Lymphocytes % (Manual) (18-44) % Monocytes % (Manual) (3-9) % Eosinophils % (Manual) (1-6) % Nucleated RBC % Abs Neuts (Manual) (1.7-7.2) K/mm3 Abs Lymphs (Manual) (1.1-4.5) K/mm3 Abs Monocytes (Manual) (0.1-0.90) K/mm3 Absolute Eos (Manual) (0.02-0.50) K/mm3 Platelet Estimate (Adequate) Schistocytes Sodium 131 L (136-145) mmol/L Potassium 3.1 L (3.5-5.1) mmol/L Chloride 99 (98-108) mmol/L Carbon Dioxide 6 L (21-32) mmol/L Anion Gap 26 H (4-12) mmol/L BUN 18 (7-18) mg/dL Creatinine 1.17 H (0.55-1.02) mg/dL Estim Creat Clear Calc 55 ml/min Estimated GFR 52 L (59 - ) Glucose 356 H (70-99) mg/dL POC Capillary Glucose 378 H 329 H (65-105) mg/dl Hemoglobin A1c (<5.7) % Calculated Osmolality 287 (285-295) mOsm/kg Lactic Acid (0.4-2.0) mmol/L Calcium 7.8 L (8.5-10.1) mg/dL Total Bilirubin (0.00-1.00) mg/dL AST (15-37) U/L ALT (14-59) U/L Alkaline Phosphatase (46-116) U/L Troponin I (0.00-60.4) ng/L Total Protein (6.4-8.2) g/dL Albumin (3.4-5.0) g/dL Urine Color (Yellow) Urine Appearance (Clear) Urine pH (5.0-8.0) Ur Specific [place] (1.010-1.020) Urine Protein (Negative) Urine Glucose (UA) (Negative) Urine Ketones (Negative) Ur Blood (Man) (Negative) Urine Nitrate (Negative) Urine Bilirubin (Negative) Urine Urobilinogen (0.2-1.0) mg/dL Leukocyte Esterase Rfl (Negative) SHAHID/UL Urine RBC (0-2) /hpf Urine WBC (0-3) /hpf Ur Squamous Epith Cells (Few) /hpf Urine Bacteria (None) /hpf Urine Test Acetone Level Small A (Negative) Influenza A (RT-PCR) (Negative) Influenza B (RT-PCR) (Negative) RSV (RT-PCR) (Negative) SARS-CoV-2 RNA (RT-PCR) (Negative) 04/26/24 Range/Units 15:21 WBC (4.8-10.8) K/mm3 RBC (4.20-5.40) M/mm3 Hgb (12.0-15.0) g/dL Hct (35.0-49.0) % MCV (78.0-102.0) fL MCH (27.0-31.0) pg MCHC (32-36) g/dL RDW (11.6-14.4) % Plt Count (150-420) K/mm3 MPV (9.2-11.8) fl Immature Gran % (Auto) Neut % (Auto) Lymph % (Auto) [place] % (Auto) Eos % (Auto) Baso % (Auto) Lymph # (Auto) [place] # (Auto) Eos # (Auto) Baso # (Auto) Abs Immat Gran (auto) Absolute Neuts (auto) Absolute Nucleated RBC Total Counted Neutrophils % (Manual) (46-73) % Band Neutrophils % (0-6) % Lymphocytes % (Manual) (18-44) % Monocytes % (Manual) (3-9) % Eosinophils % (Manual) (1-6) % Nucleated RBC % Abs Neuts (Manual) (1.7-7.2) K/mm3 Abs Lymphs (Manual) (1.1-4.5) K/mm3 Abs Monocytes (Manual) (0.1-0.90) K/mm3 Absolute Eos (Manual) (0.02-0.50) K/mm3 Platelet Estimate (Adequate) Schistocytes Sodium (136-145) mmol/L Potassium (3.5-5.1) mmol/L Chloride (98-108) mmol/L Carbon Dioxide (21-32) mmol/L Anion Gap (4-12) mmol/L BUN (7-18) mg/dL Creatinine (0.55-1.02) mg/dL Estim Creat Clear Calc ml/min Estimated GFR (59 - ) Glucose (70-99) mg/dL POC Capillary Glucose 275 H (65-105) mg/dl Hemoglobin A1c (<5.7) % Calculated Osmolality (285-295) mOsm/kg Lactic Acid (0.4-2.0) mmol/L Calcium (8.5-10.1) mg/dL Total Bilirubin (0.00-1.00) mg/dL AST (15-37) U/L ALT (14-59) U/L Alkaline Phosphatase (46-116) U/L Troponin I (0.00-60.4) ng/L Total Protein (6.4-8.2) g/dL Albumin (3.4-5.0) g/dL Urine Color (Yellow) Urine Appearance (Clear) Urine pH (5.0-8.0) Ur Specific [place] (1.010-1.020) Urine Protein (Negative) Urine Glucose (UA) (Negative) Urine Ketones (Negative) Ur Blood (Man) (Negative) Urine Nitrate (Negative) Urine Bilirubin (Negative) Urine Urobilinogen (0.2-1.0) mg/dL Leukocyte Esterase Rfl (Negative) SHAHID/UL Urine RBC (0-2) /hpf Urine WBC (0-3) /hpf Ur Squamous Epith Cells (Few) /hpf Urine Bacteria (None) /hpf Urine Test Acetone Level (Negative) Influenza A (RT-PCR) (Negative) Influenza B (RT-PCR) (Negative) RSV (RT-PCR) (Negative) SARS-CoV-2 RNA (RT-PCR) (Negative) ABG Data ABG results: 04/26/24 14:52 Puncture Site Left radial ABG pH 7.25 L ABG pCO2 21.0 L ABG pO2 100.4 H ABG PO2/FiO2 Ratio Not Reportable ABG HCO3 9.0 L ABG O2 Saturation 97.0 ABG O2 Content 14.7 L ABG Base Excess -16.3 L A-a Gradient Not Reportable Oxyhemoglobin 96.4 O2 Delivery Device Room air O2 Liters/Min 0.0 Imaging Data Attestation: I personally reviewed and interpreted this imaging study as follows: ECG Data EKG #1: Attestation: I personally reviewed and interpreted this ECG as follows: ECG completion date: 04/26/24 ECG completion time: 12:49 EKG Interpretation: tachycardia, sinus rhythm, no ectopy, non-specific ST changes, normal QRS and right axis Critical Care Time Critical Care Time Critical Care Time: Yes Total Critical Care Time: 45 Discharge Plan Discharge Clinical Impression: DKA (diabetic ketoacidosis) Qualifiers: Diabetes mellitus type: type 1 Diabetes mellitus complication detail: without coma Qualified Code(s): E10.10 - Type 1 diabetes mellitus with ketoacidosis without coma Pneumonia Qualifiers: Pneumonia type: due to unspecified organism Laterality: right Lung location: unspecified part of lung Qualified Code(s): J18.9 - Pneumonia, unspecified organism Patient Disposition: Acute Care Hospital Condition: Serious Patient Language: Bengali Prescriptions: No Action modafinil 100 mg tablet 100 mg PO DAILY bupropion HCl 150 mg tablet extended release 24 hr 150 mg PO BID omeprazole 20 mg capsule,delayed release(DR/EC) 40 mg PO DAILY topiramate 100 mg tablet 100 mg PO DAILY prazosin 1 mg capsule 2 mg PO HS ferrous sulfate 325 mg (65 mg iron) tablet 325 mg PO BID Qty: 60 2RF Venofer 200 mg iron/10 mL solution 100 mg IV 3XW Qty: 50 0RF Rx Instructions: administer over 2-5 mins insulin lispro 100 unit/mL insulin pen 14 unit subcut TID Qty: 15 3RF insulin glargine [Basaglar KwikPen U-100 Insulin] 100 unit/mL (3 mL) insulin pen 40 unit subcut BID Qty: 15 3RF clonidine HCl 0.1 mg tablet 0.1 mg PO TID Follow-up/Referrals: Sarah Robles NP [Primary Care Provider] - Time of Disposition: 15:30
--- NOTE | 2024-04-26 09:54 | ECG_ITS ---
Test Date: 2024-04-26 10:25:29 Measurements Intervals [place] Rate: 106 P: 86 WA: 104 QRS: 93 QRSD: 87 T: 11 QT: 364 QTc: 485 Interpretive Statements SINUS TACHYCARDIA WITH SHORT WA INTERVAL POSSIBLE RIGHT ATRIAL ENLARGEMENT [0.25mV P-WAVE] BORDERLINE RIGHT AXIS DEVIATION [QRS AXIS > 90] NONSPECIFIC ST & T-WAVE ABNORMALITY ABNORMAL RHYTHM ECG No previous ECG available for comparison Electronically Signed On 04-26-2024 18:11:16 CYTOLOGY TECHNOLOGIST by Noemi Hercules M.D.
[2024-04-26 09:57] LABS: Glucose Point of Care > 450 mg/dl (65-105)
[2024-04-26 10:21] LABS: Hematocrit 35.5 % (35.0-49.0); Mean Corpuscular Hemoglobin 24.1 pg (27.0-31.0); Mean Corpuscular Volume 77.9 fL (78.0-102.0); Mean Platelet Volume 9.7 fl (9.2-11.8); Platelet Count Result 390 K/mm3 (150-420); Red Blood Count 4.56 M/mm3 (4.20-5.40); Red Cell Distribution Width 18.8 % (11.6-14.4)
[2024-04-26] MEDS: SODIUM CHLORIDE 0.9% IV 1,000 ML 999 ML IV CONT ×3 (10:23→12:22)
[2024-04-26] MEDS: PROMETHAZINE HCL 25 MG/ML AMPUL IM (10:24)
[2024-04-26] MEDS: INSULIN HUMAN REGULAR (*BKC) 1,000 UNITS/10 ML VIAL 8 UNITS IV PUSH ×2 (10:33→12:08)
[2024-04-26 10:36] LABS: SARS-CoV-2 RNA PCR Negative (Negative)
[2024-04-26 10:37] LABS: Hemoglobin A1C 12.5 % (<5.7)
[2024-04-26 10:38] LABS: Influenza A QL RT-PCR Negative (Negative); Influenza B QL RT-PCR Negative (Negative); RSV RNA, RT-PCR Negative (Negative)
[2024-04-26 10:41] LABS: Acetone Moderate (Negative)
[2024-04-26 10:42] LABS: Alanine Aminotransferase 31 U/L (14-59); Albumin Level 3.4 g/dL (3.4-5.0); Alkaline Phosphatase 170 U/L (46-116); Anion Gap 30 mmol/L (4-12); Aspartate Amino Transferase 18 U/L (15-37); Bilirubin,Total 0.7 mg/dL (0.00-1.00); Blood Urea Nitrogen 19 mg/dL (7-18); Calcium 8.7 mg/dL (8.5-10.1); Carbon Dioxide 7 mmol/L (21-32); Chloride 86 mmol/L (98-108); Estimated CRCL calculation 50 ml/min; Estimated Glomerular Filt Rate 45; Potassium 3.9 mmol/L (3.5-5.1); Sodium 123 mmol/L (136-145); Total Protein 7.9 g/dL (6.4-8.2); Troponin I 4.6 ng/L (0.00-60.4)
[2024-04-26 10:43] LABS: Glucose 597 mg/dL (70-99); Osmolality Calculated 286 mOsm/kg (285-295)
[2024-04-26 10:50] LABS: Lactic Acid Reflex 1.1 mmol/L (0.4-2.0)
[2024-04-26 10:50] LABS: Band Neutrophils Percent 1 % (0-6); Eosinophils Percent Manual 1 % (1-6); Lymphocytes Percent Manual 3 % (18-44); Monocytes Percent Manual 10 % (3-9); Neutrophils Percent Manual 85 % (46-73); Platelet Estimate Adequate (Adequate); Total Cells Counted 100
[2024-04-26] MEDS: PIPERACILLN/TAZ 3.375GM/NS50ML 3.375 GM/50 ML BAG IVPB (11:18)
[2024-04-26 11:34] LABS: Glucose Point of Care > 450 mg/dl (65-105)
[2024-04-26] MEDS: INSULIN REG 100 UNITS/100 ML 100 UNITS/100 ML BAG 6 UNITS IV CONT (12:10)
[2024-04-26 12:17] LABS: Add Urine Microscopic? YES; Appearance Urine Clear (Clear); Bilirubin Urine Negative (Negative); Blood Urine Trace-intact (Negative); Color Urine Light Yellow (Yellow); Glucose Urine UA 3+ (Negative); Ketones Urine 3+ (Negative); Leukocyte Esterase Ur Negative LEU/UL (Negative); Nitrate Urine Negative (Negative); Protein Urine Trace (Negative); Specific Grav Ur >= 1.030 (1.010-1.020); Urobilinogen Urine 0.2 mg/dL (0.2-1.0); pH Urine 5.5 (5.0-8.0)
[2024-04-26 12:18] LABS: Pregnancy On Board Control Positive; Urine Pregnancy Test Negative
[2024-04-26 12:24] LABS: Bacteria Urine 1+ /hpf; RBC Urine 0-2 /hpf (0-2); Squamous Epithelial Cell Urine Few /hpf (Few); WBC Urine None seen /hpf (0-3)
[2024-04-26 12:59] LABS: Glucose Point of Care 405 mg/dl (65-105)
[2024-04-26 13:20] LABS: Acetone Small (Negative)
[2024-04-26 13:26] LABS: Anion Gap 26 mmol/L (4-12); Blood Urea Nitrogen 18 mg/dL (7-18); Calcium 7.8 mg/dL (8.5-10.1); Carbon Dioxide 6 mmol/L (21-32); Chloride 99 mmol/L (98-108); Estimated CRCL calculation 55 ml/min; Estimated Glomerular Filt Rate 52; Glucose 356 mg/dL (70-99); Osmolality Calculated 287 mOsm/kg (285-295); Potassium 3.1 mmol/L (3.5-5.1); Sodium 131 mmol/L (136-145)
[2024-04-26 13:33] LABS: Glucose Point of Care 378 mg/dl (65-105)
[2024-04-26 14:21] LABS: Glucose Point of Care 329 mg/dl (65-105)
[2024-04-26] MEDS: POTASSIUM CHLORIDE 20 MEQ ER TABLET 40 MEQ PO (14:22)
[2024-04-26 15:01] LABS: Base Excess ABG -16.3 mmol/L (0-2); Oxygen Content ABG 14.7 %vol (16.0-22.0); Oxyhemoglobin 96.4 % (94-100); PO2 ABG 100.4 mmHg (80-90); pH ABG 7.25 (7.35-7.45)
[2024-04-26 15:02] LABS: Device ROOM AIR; Modified Allen's Test Pass; Site Drawn LEFT RADIAL
[2024-04-26 15:22] LABS: Glucose Point of Care 275 mg/dl (65-105)
[2024-04-26] MEDS: POTASSIUM BICARBONATE 25 MEQ TABEF PO (15:22)
[2024-04-26 16:40] LABS: Glucose Point of Care 237 mg/dl (65-105)
[2024-04-26 17:22] LABS: Anion Gap 23 mmol/L (4-12); Blood Urea Nitrogen 15 mg/dL (7-18); Calcium 7.8 mg/dL (8.5-10.1); Carbon Dioxide 9 mmol/L (21-32); Chloride 102 mmol/L (98-108); Estimated CRCL calculation 69 ml/min; Estimated Glomerular Filt Rate > 60; Glucose 237 mg/dL (70-99); Osmolality Calculated 286 mOsm/kg (285-295); Potassium 3.5 mmol/L (3.5-5.1); Sodium 134 mmol/L (136-145)
[2024-04-26 17:26] LABS: Acetone Small (Negative)
[2024-04-26 17:43] LABS: Glucose Point of Care 274 mg/dl (65-105)
--- NOTE | 2024-04-27 18:17 | PC.NURSE ---
Preliminary blood culture report: no growth to date
--- NOTE | 2024-05-02 12:34 | PC.NURSE ---
FINAL BLOOD CULTURE REPORT; NO GROWTH AFTER 5 DAYS
== END 2024-04-26 17:55 | disposition short-term general hospital (02) ==
PROVIDERS: Emergency Provider Emergency Medicine; PCP Nurse Practitioner Family
DX: E10.10 Type 1 diabetes mellitus with ketoacidosis without coma (principal); J18.9 Pneumonia, unspecified organism; F15.90 Other stimulant use, unspecified, uncomplicated; B19.20 Unspecified viral hepatitis C without hepatic coma; F17.210 Nicotine dependence, cigarettes, uncomplicated; Z20.822 Contact with and (suspected) exposure to COVID-19
CPT/HCPCS: 36415; 36600; 71046; 80048; 80053; 81001; 81025; 82010; 82805; 82948; 83036; 83605; 84484; 85018; 85025; 87040; 87637; 93005; 96361; 96365; 96372; 96375; 96376; 99291; A9270; J1815; J2543; J2550; J7030

== ENCOUNTER 2024-06-23 16:47 | Outpatient (NON) | payer OTHER, SELFPAY ==
--- OUTSIDE RECORDS SUMMARY | 2024-06-23 18:31 | XMS_ITS ---
Author Organization Unknown Address [address] [place] [phone] Phone Care Team Providers Care Music Professor Name Role Phone MEDINA FAIR Attending Unavailable NO PCP Primary Unavailable Immunization Immunization Date Status Additional Notes Code Code System DTP 02/03/1986 Completed CVX DTP 04/30/1986 Completed CVX DTP 08/13/1986 Completed CVX DTP 06/17/1987 Completed CVX DTP 12/16/1989 Completed CVX OPV 02/03/1986 Completed CVX OPV 04/30/1986 Completed CVX OPV 06/17/1987 Completed 02 CVX OPV 12/16/1989 Completed 02 CVX measles 12/21/1990 Completed 05 CVX mumps 05/29/1987 Completed 07 CVX Hep B, adolescent or pediatric 03/16/1996 Completed 08 CVX Hep B, adolescent or pediatric 04/13/1996 Completed 08 CVX Hep B, adolescent or pediatric 09/14/1996 Completed 08 CVX COVID-19, mRNA, LNP-S, PF, 3 0 mcg/0.3 mL dose 05/01/2020 Completed 208 CVX Results CBC W/ DIFF - Collect Date/T dwight: 01/01/2024 16:18 [facility] ID: [id number] [place] [address], [id number] LOINC: 44408-1 Test Value Unit Reference Range Code Code System Flag WBC 5.7 10^3uL L=4.8 H=10.8 RBC 5.47 10^6uL L=4.20 H=5.40 H HEMOGLOBIN 9.2 g/dL L=12.0 H=16.0 718-7 LOINC L HEMATOCRIT 35.2 VOL% L=37.0 H=47.0 4544-3 LOINC L MCV 64.4 fL L=81.0 H=99.0 L MCH 16.8 pg L=27.0 H=32.0 L MCHC 26.1 g/dL L=32.0 H=36.0 L PLATELETS 567 10^3uL L=100 H=400 07473-9 LOINC H ~ COMMENT PLATELETS INCREASED VERIFIED BY SLIDE METH ~~ COMMENT LARGE PLATELETS SEEN RDW 19.2 % L=11.7 H=15.5 H %GRAN 47.4 % L=40.0 H=70.0 17561-4 LOINC %LYMPH 42.1 % L=20.0 H=45.0 736-9 LOINC %MONO 7.0 % L=2.0 H=10.0 28350-5 LOINC %EOS 2.3 % L=0.0 H=6.0 713-8 LOINC %BASO 1.0 % L=0.0 H=3.0 706-2 LOINC #NEUT 2.7 10^3uL L=1.9 H=7.6 52355-6 LOINC #LYMPH 2.4 10^3uL L=0.9 H=4.9 41822-4 LOINC #MONO 0.4 10^3uL L=0.1 H=0.9 34172-6 LOINC #EOS 0.1 10^3uL L=0.0 H=0.6 712-0 LOINC #BASO 0.06 10^3uL L=0.00 H=0.10 70840-8 LOINC #IM GRANS 0.0 10^3uL L=0.0 H=7.0 19737-9 LOINC %IM GRANS 0.2 % L=0.0 H=5.0 98928-5 LOINC %NRB 0.0 L=0.0 H=0.2 57986-1 LOINC #NRB 0.000 L=0.000 H=0.012 40638-7 LOINC MANUAL DIFF NOT INDICATED RBC MORPH SEE BELOW ANISO 1+ NORMAL:NONE SEEN 702-1 LOINC MACRO NORMAL:NONE SEEN MICRO 2+ NORMAL:NONE SEEN POIK 1+ NORMAL:NONE SEEN HYPO 2+ NORMAL:NONE SEEN POLYC NORMAL:NONE SEEN COMPREHENSIVE METABOLIC PANE L - Collect Date/Time: 01/01/2024 16:18 [facility] ID: [id number] [address] [place], [place], [phone] LOINC: 55272-7 Test Value Unit Reference Range Code Code System Flag FASTING UNKNOWN BUN 15 mg/dL L=7 H=20 3094-0 LOINC CREATININE 0.90 mg/dL L=0.52 H=1.04 2160-0 LOINC GLUCOSE 45 mg/dL L=74 H=106 2345-7 LOINC L SODIUM 145 mmol/L L=132 H=144 2951-2 LOINC H POTASSIUM 3.3 mmol/L L=3.5 H=5.1 2823-3 LOINC L CHLORIDE 101 mmol/L L=98 H=107 2075-0 LOINC CO2 28.0 mmol/L L=22.0 H=30.0 2028-9 LOINC ANION GAP 19 L=10 H=20 93802-1 LOINC OSMOLALITY 298 mOs/kG L=280 H=296 25758-7 LOINC H BUN/CREAT 16.7 3097-3 LOINC CALCIUM 10.4 mg/dL L=8.3 H=10.5 32481-6 LOINC AST 56 U/L L=15 H=46 1920-8 LOINC H ALT 63 U/L L=9 H=72 1742-6 LOINC ALKALINE PHOS 120 U/L L=38 H=126 6768-6 LOINC TOTAL BILI 0.5 mg/dL L=0.2 H=1.3 1975-2 LOINC ALBUMIN 5.2 G/dL L=3.5 H=5.0 1751-7 LOINC H TOTAL PROTEIN 9.6 g/L L=6.3 H=8.2 2885-2 LOINC H A/G RATIO 1.2 23537-6 LOINC AGE 38 90333-8 LOINC eGFR NON-AFR 74 ml/min eGFR AFR AMER 90 ml/min OD [id number] YLATE-ETOH - Collect Date/Time: 01/01/2024 16:18 [facility] ID: [id number] [address] [place], [place], [phone] LOINC: Test Value Unit Reference Range Code Code System Flag ACETAMINOPHEN < 10 ug/dL L=0 H=10 3298-7 LOINC SALICYLATE 10 mg/dL L=0 H=5 4024-6 LOINC H ALCOHOL < 10.00 mg/dL L=0.00 H=50.00 5643-2 LOINC TEST URINE - Colle ct Date/Time: 01/01/2024 16:02 [facility] ID: [id number] [address] [place], [place], [phone] LOINC: Test Value Unit Reference Range Code Code System Flag URINE PREG NEGATIVE URINALYSIS w/Microscopy/C&S if indicated - Collect Date/Time: 01/01/2024 16:02 [facility] ID: [id number] [address] [place], [place], [phone] LOINC: 85294-0 Test Value Unit Reference Range Code Code System Flag UR SOURCE VOIDED 33039-9 LOINC COLOR YELLOW YELLOW 5778-6 LOINC CLARITY SL CLOUDY CLEAR 63847-8 LOINC SPEC GRAVITY >=1.030 1.000-1.030 5811-5 LOINC A PH 5.5 5.0 - 6.5 5803-2 LOINC LEUK EST NEGATIVE NEGATIVE 5799-2 LOINC NITRATE POSITIVE NEGATIVE A PROTEIN NEGATIVE NEGATIVE 5804-0 LOINC GLUCOSE 3+ NEGATIVE 22208-2 LOINC KETONES NEGATIVE NEGATIVE 11679-1 LOINC UROBILINOGEN 0.2 NEGATIVE 5818-0 LOINC BILIRUBIN NEGATIVE NEGATIVE 14425-9 LOINC BLOOD NEGATIVE NEGATIVE 87971-3 LOINC WBC 10-20 0 - 2 34281-9 LOINC A RBC 0-2 0 - 2 94862-9 LOINC EPITHELIAL FEW RARE-FEW 62643-4 LOINC BACTERIA 3+ NONE SEEN 67011-9 LOINC A MUCUS FEW NONE SEEN 8247-9 LOINC YEAST NOT PRESENT NOT PRESENT 49157-3 LOINC CASTS SEE BELOW 52732-0 LOINC CRYSTALS NONE SEEN 09212-7 LOINC CULTURE? YES 8251-1 LOINC DIAGNOSIS ABN LAB RESU URINE DRUG SCREEN 12 PANEL R APID - Collect Date/Time: 01/01/2024 16:02 [facility] ID: [id number] [address] [place], [place], [phone] LOINC: Test Value Unit Reference Range Code Code System Flag THC NEGATIVE PCP NEGATIVE COCAINE NEGATIVE 44106-1 LOINC METHAMPHETAMINES POSITIVE A OPIATES NEGATIVE AMPHETAMINES POSITIVE 53906-3 LOINC A BENZO NEGATIVE 56581-5 LOINC TCA NEGATIVE METHADONE NEGATIVE BARBITUATES NEGATIVE OXYCODONE NEGATIVE CHEST 2V - Completed: 2023 16:27 LOINC: EXAM DESCRIPTION: CHEST 2V REASON FOR STUDY: short of breath/ dizzy/ weakness/ cough/ worsening Duration: 2 years Smoking History: TECHNIQUE: 2 radiographic view(s) of the chest. COMPARISON: None FINDINGS: LUNGS: Allowing for overlying soft tissues, the lungs appear grossly clear. No consolidation or effusion is seen. HEART/MEDIASTINUM: Cardiac silhouette normal in size. Mediastinal and hilar contours appear normal. LINES/TUBES: None. BONES: No acute osseous abnormality. IMPRESSION: No acute cardiopulmonary abnormality. THIS IS AN ELECTRONICALLY VERIFIED FINAL REPORT 01/01/2024 4:38 PM - Electronically signed by Mohsen Whitaker M.D. KH: MILDRED Report ID: [id number] Reading Location: [id number] Social History Type Status Start Date End Date Code Code Syst em Smoking History Current every day smoker 279771882 SNOMED CT Sex Female Assessment You had the following problems:SCREENING EXAMINATION FOR STDTYPE 1 DIABETES MELLITUS WITH HYPERGLYCEMIAINFLAMMATORY LIVER DISEASE, UNSPECIFIEDHYPERGLYCEMIA, UNSPECIFIED Hospital Discharge Instructions Should you have any questions prior to discharge, please contact a member of your healthcare team. If you have left the hospital and have any questions, please contact your primary care physician. Reason For Referral No Data Found Problems Problem Start Date Resolved Date Status Code Code System SCREENING EXAMINATION FOR STD active 624689934 SNOMED-CT TYPE 1 DIABETES MELLITUS WITH HYPERGLYCEMIA active 264526727116883 SNOMED -CT INFLAMMATORY LIVER DISEASE, UNSPECIFIED active 630746346 SNOMED- CT HYPERGLYCEMIA, UNSPECIFIED active 25933920 SNOMED-CT Plan of Treatment No Data Found Encounters Encounter Diagnosis Start Date Code Code Sys tem Hypokalemia 01/01/2024 SNOMED-CT Personal Care Team Section Performer Name Performer Role Active Date Inactive Da te Imaging Narrative Notes
== END 2024-06-23 16:48 | disposition home or self-care (01) ==
LOC: CHSLAB 16:48
PROVIDERS: Visit Provider Nurse Practitioner Family
DX: S91.301A Unspecified open wound, right foot, initial encounter (principal)
CPT/HCPCS: 87070; 87075; 87205

== ENCOUNTER 2024-09-11 00:35 | Emergency (ER) | payer OTHER, SELFPAY ==
[2024-09-11 00:35] VITALS: BP 151/96; PULSE 104; RESP 22; TEMP 36.9; O2SAT 98
--- OUTSIDE RECORDS SUMMARY | 2024-09-11 00:37 | XMS_ITS ---
Author Organization [facility] Address [address] [place] [address] Care Team Providers Care Calender Machine Operator Name Role Phone Melinda Pastrana Primary Care Provider REASON FOR VISIT estab care Encounters Encounter Location Date Provider Diagnosis [facility] [address] [place] [address] 06/20/2023 Melinda Pastrana Plan Of Treatment No Information Progress Notes * Miya MARTINEZDOB:1985 (38 yo F)Acc No.[id number]:06/20/2023 Progress Notes Patient: Miya BEAL Provider: Wesley Pastrana DNP, FNP-C :1985 A ge:37 Y S ex:Female Date:06/20/2023 Address:[address] [place] [id number] Subjective: * Chief Complaints: * 1 . Estab care. * Medical History: Objective: Assessment: Plan: * Treatment: * * Electronic signature of Jaden Pastrana DNP, FNP-C on 09/11/2024 at 12:37 AM CDT Sign off status: Pending Visit Status: N /S (No-Show) * Provider: Wesley Pastrana DNP, FNP-C Date: 0 06/20/2023 Generated for Gaurang shirley/Gennaro/eTransmitting on: 0 09/11/2024 12:37 AM CDT
--- OUTSIDE RECORDS SUMMARY | 2024-09-11 00:37 | XMS_ITS ---
Author Organization Unknown Address [address] [place] [phone] Phone Care Team Providers Care Canine Service Teacher Name Role Phone MEDINA FAIR Attending Unavailable [...] DIFF - Collect Date/T dwight: 01/01/2024 16:18 [facility] ID: [id number] [place] [address], [phone] LOINC: 58460-9 Test Value Unit Reference Range Code Code System Flag WBC 5.7 10^3uL L=4.8 H=10.8 RBC 5.47 10^6uL L=4.20 H=5.40 H HEMOGLOBIN 9.2 g/dL L=12.0 H=16.0 718-7 LOINC L HEMATOCRIT 35.2 VOL% L=37.0 H=47.0 4544-3 LOINC L MCV 64.4 fL L=81.0 H=99.0 L MCH 16.8 pg L=27.0 H=32.0 L MCHC 26.1 g/dL L=32.0 H=36.0 L PLATELETS 567 10^3uL L=100 H=400 15224-7 LOINC H ~ COMMENT PLATELETS INCREASED VERIFIED BY SLIDE METH ~~ COMMENT LARGE PLATELETS SEEN RDW 19.2 % L=11.7 H=15.5 H %GRAN 47.4 % L=40.0 H=70.0 92934-9 LOINC %LYMPH 42.1 % L=20.0 H=45.0 736-9 LOINC %MONO 7.0 % L=2.0 H=10.0 23667-0 LOINC %EOS 2.3 % L=0.0 H=6.0 713-8 LOINC %BASO 1.0 % L=0.0 H=3.0 706-2 LOINC #NEUT 2.7 10^3uL L=1.9 H=7.6 76716-9 LOINC #LYMPH 2.4 10^3uL L=0.9 H=4.9 18551-7 LOINC #MONO 0.4 10^3uL L=0.1 H=0.9 73088-3 LOINC #EOS 0.1 10^3uL L=0.0 H=0.6 712-0 LOINC #BASO 0.06 10^3uL L=0.00 H=0.10 38406-3 LOINC #IM GRANS 0.0 10^3uL L=0.0 H=7.0 17798-0 LOINC %IM GRANS 0.2 % L=0.0 H=5.0 30483-8 LOINC %NRB 0.0 L=0.0 H=0.2 66105-5 LOINC #NRB 0.000 L=0.000 H=0.012 43317-3 LOINC MANUAL DIFF NOT INDICATED RBC MORPH SEE BELOW ANISO 1+ NORMAL:NONE SEEN 702-1 LOINC MACRO NORMAL:NONE SEEN MICRO 2+ NORMAL:NONE SEEN POIK 1+ NORMAL:NONE SEEN HYPO 2+ NORMAL:NONE SEEN POLYC NORMAL:NONE SEEN COMPREHENSIVE METABOLIC PANE L - Collect Date/Time: 01/01/2024 16:18 [facility] ID: [id number] [address] [place], [place], [phone] LOINC: 76711-2 Test Value Unit Reference Range Code Code [...] 2028-9 LOINC ANION GAP 19 L=10 H=20 77756-2 LOINC OSMOLALITY 298 mOs/kG L=280 H=296 97128-2 LOINC H BUN/CREAT 16.7 3097-3 LOINC CALCIUM 10.4 mg/dL L=8.3 H=10.5 27968-5 LOINC AST 56 U/L L=15 H=46 1920-8 LOINC H ALT 63 U/L L=9 H=72 1742-6 LOINC ALKALINE PHOS 120 U/L L=38 H=126 6768-6 LOINC TOTAL BILI 0.5 mg/dL L=0.2 H=1.3 1975-2 LOINC ALBUMIN 5.2 G/dL L=3.5 H=5.0 1751-7 LOINC H TOTAL PROTEIN 9.6 g/L L=6.3 H=8.2 2885-2 LOINC H A/G RATIO 1.2 97002-6 LOINC AGE 38 62857-0 LOINC eGFR NON-AFR 74 ml/min eGFR AFR AMER 90 ml/min OD [id number] YLATE-ETOH - Collect Date/Time: 01/01/2024 16:18 [facility] ID: [id number] [address] [place], [place], [id number] LOINC: Test Value Unit Reference Range Code Code System Flag ACETAMINOPHEN < 10 ug/dL L=0 H=10 3298-7 LOINC SALICYLATE 10 mg/dL L=0 H=5 4024-6 LOINC H ALCOHOL < 10.00 mg/dL L=0.00 H=50.00 5643-2 LOINC TEST URINE - Colle ct Date/Time: 01/01/2024 16:02 [facility] ID: [id number] [address] [place] [address], [phone] LOINC: Test Value Unit Reference Range Code Code System Flag URINE PREG NEGATIVE URINALYSIS w/Microscopy/C&S if indicated - Collect Date/Time: 01/01/2024 16:02 [facility] ID: [id number] [address] [place] [address], [id number] LOINC: 56369-6 Test Value Unit Reference Range Code Code System Flag UR SOURCE VOIDED 93667-2 LOINC COLOR YELLOW YELLOW 5778-6 LOINC CLARITY SL CLOUDY CLEAR 32400-2 LOINC SPEC GRAVITY >=1.030 1.000-1.030 5811-5 LOINC A PH 5.5 5.0 - 6.5 5803-2 LOINC LEUK EST NEGATIVE NEGATIVE 5799-2 LOINC NITRATE POSITIVE NEGATIVE A PROTEIN NEGATIVE NEGATIVE 5804-0 LOINC GLUCOSE 3+ NEGATIVE 47316-6 LOINC KETONES NEGATIVE NEGATIVE 78995-8 LOINC UROBILINOGEN 0.2 NEGATIVE 5818-0 LOINC BILIRUBIN NEGATIVE NEGATIVE 34671-2 LOINC BLOOD NEGATIVE NEGATIVE 57176-0 LOINC WBC 10-20 0 - 2 95709-8 LOINC A RBC 0-2 0 - 2 00991-9 LOINC EPITHELIAL FEW RARE-FEW 12373-6 LOINC BACTERIA 3+ NONE SEEN 62907-4 LOINC A MUCUS FEW NONE SEEN 8247-9 LOINC YEAST NOT PRESENT NOT PRESENT 79459-3 LOINC CASTS SEE BELOW 42107-5 LOINC CRYSTALS NONE SEEN 72714-1 LOINC CULTURE? YES 8251-1 LOINC DIAGNOSIS ABN LAB RESU URINE DRUG SCREEN 12 PANEL R APID - Collect Date/Time: 01/01/2024 16:02 [facility] ID: [id number] [address] [place], [place], [id number] LOINC: Test Value Unit Reference Range Code Code System Flag THC NEGATIVE PCP NEGATIVE COCAINE NEGATIVE 71233-1 LOINC METHAMPHETAMINES POSITIVE A OPIATES NEGATIVE AMPHETAMINES POSITIVE 75272-1 LOINC A BENZO NEGATIVE 90292-9 LOINC TCA NEGATIVE METHADONE NEGATIVE BARBITUATES NEGATIVE [...] Electronically signed by Mohsen Whitaker M.D. KH: KH Report ID: [id number] Reading Location: [id number] Social History Type Status Start Date End Date Code Code Syst em Smoking History Current every day smoker 092852281 SNOMED CT Sex Female Assessment You had [...] Code System SCREENING EXAMINATION FOR STD active 698444190 SNOMED-CT TYPE 1 DIABETES MELLITUS WITH HYPERGLYCEMIA active 202248519928957 SNOMED -CT INFLAMMATORY LIVER DISEASE, UNSPECIFIED active 495420545 SNOMED- CT HYPERGLYCEMIA, UNSPECIFIED active 14756494 SNOMED-CT Plan of Treatment No Data Found Encounters Encounter Diagnosis Start Date Code Code Sys tem Hypokalemia 01/01/2024 SNOMED-CT Personal Care Team Section Performer Name Performer Role Active Date Inactive Da te Imaging Narrative Notes
--- OUTSIDE RECORDS SUMMARY | 2024-09-11 00:37 | XMS_ITS | Clinical Summary ---
Author Organization [facility] Address [facility] [place] [address] Care Team Providers Care Supervisor Personnel Clerks Name Role Phone Kel Shaikh DELPHI PROGRAMMER Primary Care Provider [phone] Allergies Active Allergy Reactions Criticality Noted Date Comments Cyclobenzaprine Nausea and Vomiting 06/08/2023 Hydrocodone Nausea and Vomiting 06/08/2023 Medications insulin lispro (HUMALOG) 100 UNIT/ML injection (VIAL) - Use additional sliding scale Humalog insulin to your meal time dose based on the blood sugars reading following the scale ( make sure insulin doses at least 4 hours apart) 70-170 mg/dL = 0 units; 171-200 mg/dL = 1 unit; 201-230 mg/dL = 2 units; 231-260 mg/dL = 3 units; 261-290 mg/dL = 4 units; 291-320 mg/dL = 5 units; 321-350 mg/dL = 6 units; 351-380 mg/dL = 7 units; 381-410 mg/dL = 8 units; Greater than 400 mg/dL = call Endocrinology office 10 mL 4 Active ABILIFY MAINTENA IM injection Inject 2 mLs (400 mg total) into the muscle every 28 days. 4 Active buPROPion XL (WELLBUTRIN XL) 300 MG 24 hr tablet Take 1 tablet (300 mg total) by mouth every morning. 4 Active cloNIDine (CATAPRES) 0.1 MG tablet Take 1 tablet (0.1 mg total) by mouth 3 (three) times daily. 4 Active Ferrous Sulfate (IRON) 325 (65 Fe) MG tablet Take 325 mg by mouth 2 (two) times a day. 4 Active omeprazole (PRILOSEC) 20 MG capsule Take 2 capsules (40 mg total) by mouth daily. 4 Active prazosin (MINIPRESS) 2 MG capsule Take 1 capsule (2 mg total) by mouth nightly at bedtime. 4 Active topiramate (TOPAMAX) 100 MG tablet Take 1 tablet (100 mg total) by mouth nightly at bedtime. 4 Active modafinil (PROVIGIL) 100 MG tablet Take 2 tablets (200 mg total) by mouth daily. Active insulin lispro, 1 Unit Dial, (HUMALOG) 100 UNIT/ML injection (PEN) Inject 12 Units into the skin 3 (three) times daily before meals. Plus sliding scale 5 Pen 5 Active insulin glargine (LANTUS) 100 UNIT/ML injection (VIAL) Inject 30 Units into the skin 2 (two) times daily. 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 DKA (diabetic ketoacidosis) ([facility]) Shock ([facility]) 10/06/2023 Sepsis without acute organ dysfunction ([facility]) 06/08/2023 Sepsis ([facility]) 06/08/2023 Immunizations Immunization Administration Dates Next Due Fluzone 6 Months+ Quad (0.5 mL Prefilled Syringe) 06/12/2023(Deferred: Patient/family declined - PATIENT WANTS TO DO IT ONCE DISCHARGED),06/11/2023(Deferred: Patient/family declined) Social History Tobacco Use Types Packs/Day Years Used Date Smoking Tobacco: Every Day Cigarettes Smokeless Tobacco: Never Tobacco Cessation:Ready to Q uit: Not Asked; Counseling Given: Not Answered Alcohol Use Standard Drinks/Week Comments Not Currently 0 (1 standard drink = 0.6 oz pur e alcohol) [facility] Utilities Answer Date Recorded In the past 12 months has e [employer], oil, or water [employer] threatened to shut off services in your home? Yes 04/26/2024 Humiliation, Afraid, Rape, and Kick questionnair e Answer Date Recorded Within the last year, have y ou been afraid of your partner or ex-partner? Yes 04/26/2024 Within the last year, have y ou been humiliated or emotionally abused in other ways by your partner or ex-partner? Yes Within the last year, have y ou been kicked, hit, slapped, or otherwise physically hurt by your partner or ex-partner? No 04/26/2024 Within the last year, have y ou been raped or forced to have any kind of sexual activity by your partner or ex-partner? No 04/26/2024 Overall Financial Resource Strain (CARDIA) Answe r Date Recorded How hard is it for you to pa y for the very basics like food, housing, medical care, and heating? Somewhat hard 04/26/2024 Hunger Vital Sign Answer Date Recorded Within the past 12 months, y ou worried that your food would run out before you got the money to buy more. Sometimes true Within the past 12 months, t he food you bought just didn't last and you didn't have money to get more. Sometimes true PRAPARE - Transportation Answer Date Re corded In the past 12 months, has l ack of transportation kept you from medical appointments or from getting medications? Yes 03/30 In the past 12 months, has l ack of transportation kept you from meetings, work, or from getting things needed for daily living? Yes 04/26/2024 Housing Stability Vital Sign Answer Michael e Recorded In the last 12 months, was t here a time when you were not able to pay the mortgage or rent on time? No 06/09/2023 In the last 12 months, how many places have you lived? 3 06/09/2023 In the last 12 months, was t here a time when you did not have a steady place to sleep or slept in a alf (including now)? Yes 06/09/2023 Housing Stability Vital Sign Answer Michael e Recorded In the last 12 months, was t here a time when you were not able to pay the mortgage or rent on time? Yes 04/26/2024 In the past 12 months, how m any times have you moved where you were living? 3 04/26/2024 At any time in the past 12 m [facility] [place], were you homeless or living in a alf (including now)? Yes 04/26/2024 Comments No Sex and Gender Information Value Date Recorded Sex Assigned at Not on file Legal Sex Female 8:38 PM CDT Gender Identity Not on file Sexual Orientation Not on file Last Filed Vital Signs Vital Sign Reading Time Taken Comments Blood Pressure 117/65 04/29/2024 7:40 AM MUSICAL THERAPIST Pulse 75 04/29/2024 7:40 AM MUSICAL THERAPIST Temperature 36.7 C (98.1 F) 04/29/2024 7:40 AM MUSICAL THERAPIST Respiratory Rate 17 04/29/2024 7:40 AM MUSICAL THERAPIST Oxygen Saturation 98% 04/29/2024 7:40 AM MUSICAL THERAPIST Inhaled Oxygen Concentration - - Weight 45.5 kg (100 lb 5 oz) 04/26/2024 7:16 PM MUSICAL THERAPIST Height 167.6 cm (5' 6 ) 04/26/2024 7:14 PM MUSICAL THERAPIST Body Mass Index 16.19 04/26/2024 7:14 PM MUSICAL THERAPIST Plan of Treatment Health Maintenance Due Date Last Done Comments Cervical Cancer Screening Pap Smear (Age 30 to 64) Every 3 Years 1985 Kidney Health Evaluation 1985 Annual Physical 1988 Diabetes: Retinopathy Eye Exam 12/12/2003 Hepatitis C 12/12/2003 DTaP, Tdap and Td Vaccines (1 - Tdap) 2004 12/16/1989, 06/17/1987, 08/13/1986, Additional history exists Hepatitis B Vaccines (1 of 3 - 19+ 3-dose series) 2004 Pneumococcal Vaccine: Pediatrics (0 to 5 Years) and At-Risk Patients (6 to 49 Years) (1 of 2 - PCV) 2004 Cervical Cancer Screening Pap with HPV Testing (Age 30 to 64) Every 5 Years 12/12/2015 Cervical Cancer Screening with HPV 12/12/2015 COVID-19 Vaccine ( season) 2023 Hemoglobin A1C 07/25/2024 04/26/2024, 09/26, 06/08/2023 Lipid Panel 10/05/2024 10/06/2023 HPV Vaccines Aged Out No longer eligi ble based on patient's age to complete this topic Meningococcal B Vaccine Aged Out No l onger eligible based on patient's age to complete this topic Meningococcal Vaccine Aged Out No arvind dwight eligible based on patient's age to complete this topic RSV Immunizations Under 20 Months Aged Out No longer eligible based on patient's age to complete this topic Goals Goal Patient Goal Type Associated Problems Recent Progress Patient-Stated? Author Safety - identifies appropriate community resources to contact in emergency Lifestyle Francia Spain, RN Interventions Community Resource Recommendations Community Resource Services Recommended Domains Addressed Status Status Reason/Outcome Date/Time [facility] Home Living Aide Services Utilities 04/27/2024 7:42 AM MUSICAL THERAPIST [facility] Home Living Aide Services Utilities 04/27/2024 7:42 AM MUSICAL THERAPIST [facility] Food Insecurity Services, Food Pantry, Home Living Aide Services Food Insecurity, Utilities 04/27/2024 7:42 AM MUSICAL THERAPIST from Last 12 Months Procedures Procedure Name Priority Date/Time Associated Diagnosis Comments HEMOGLOBIN, GLYCOSYLATED Routine 04/26/2024 8:42 PM MUSICAL THERAPIST LIPID PANEL STAT 10/06/2023 5:04 PM CDT from Last 3 Months or Most Recently Relevant to Health Maintenance Results * (ABNORMAL) HEMOGLOBIN, GLYCOSYLATED (04/26/2024 8:42 PM MUSICAL THERAPIST) HGB A1C 12.2(H) <5.7 % 04/26/2024 9:32 PM MUSICAL THERAPIST [facility] ESTIMATED AVG GLUCOSE 303(H) 74 - 114 MG/DL 04/26/2024 9:32 PM MUSICAL THERAPIST [facility] 04/26/2024 8:42 PM MUSICAL THERAPIST us Georgiana Garner MD LABORATORY F inal Result [facility] [address] [place] [address], [id number] * (ABNORMAL) LIPID PANEL (10/06/2023 5:04 PM CDT) CHOLESTEROL 128 MG/DL 10/06/2023 5:51 PM CDT [facility] Comment:DESIRABLE: <200 TRIGLYCERIDES 175 MG/DL 10/06/2023 5:51 PM CDT [facility] Comment:150-199 BORDERLINE H IGH HDL 37(L) >49 MG/DL 10/06/2023 5:51 PM CDT [facility] LDL (CALCULATED) 56 MG/DL 10/06/19 5:51 PM CDT [facility] Comment:<100 OPTIMAL VLDL CALCULATION 35 MG/DL 10/06/19 5:51 PM CDT [facility] Comment:REFERENCE RANGE NOT ESTABLISHED CHOL/HDL RATIO 3.5 10/06/2023 5:51 PM CDT [facility] Comment:REFERENCE RANGE NOT ESTABLISHED LDL/HDL 1.5 10/06/2023 5:51 PM CDT [facility] Comment:REFERENCE RANGE NOT ESTABLISHED NON HDL CHOLESTEROL 91 MG/DL 10/06/2023 5:51 PM CDT [facility] Comment:REFERENCE RANGE NOT ESTABLISHED 10/06/2023 5:0 4 PM CDT Esteban Hills MD LABORATORY Final R esult [facility] [address] [place] [address], [id number] from Last 3 Months or Most Recently Relevant to Health Maintenance Additional Health Concerns Infection Onset Date Last Indicated MRSA 10/06/2023 10/06/2023 Insurance SAVANNAH Advance Directives * Full Code (Latest Code Status on File) Date Activated Date Inactivated Comments 04/26/2024 7:09 PM 04/29/2024 1:25 PM * Full Code Date Activated Date Inactivated Comments 10/06/2023 4:01 PM 10/09/2023 3:04 PM * Full Code Date Activated Date Inactivated Comments 10/06/2023 4:01 PM 10/06/2023 4:01 PM * Full Code Date Activated Date Inactivated Comments 06/08/2023 6:51 PM 06/12/2023 4:09 PM Care Teams Supervisor Personnel Clerks Relationship Specialty Start Date End Date Kel Shaikh, BERNARDO [address] [place] [address] PCP - General NURSE PRACTITIONER 10/06/23
--- OUTSIDE RECORDS SUMMARY | 2024-09-11 00:37 | XMS_ITS | Encounter Summary ---
Author Organization [facility] Address [facility] [place] [address] Care Team Providers Care Area Plant Manager Name Role Phone None, Provider Primary Care Provider Adali De La RosaHEIDY Primary Care Provider [phone] None, Provider Primary Care Provider Kel Salcedo COMPANY DANCER Primary Care Provider [phone] Encounter Details Date Type Department Care Team (Late st Contact Info) Description 10/03/2018 Abstract [facility]FL CONVERSION [address] [place] [address] , Generic Conversion, Social History Tobacco Use Types Packs/Day Years Used Date Smoking Tobacco: Never Assessed Comments Unknown Sex and Gender Information Value Date Recorded Sex Assigned at Not on file Legal Sex Female 8:38 PM CDT Gender Identity Not on file Sexual Orientation Not on file documented as of this encounter Plan of Treatment Not on file documented as of this encounter Visit Diagnoses Not on filedocumented in this encounter Additional Health Concerns Infection Onset Date Last Indicated Resolved Time MRSA 10/06/2023 10/06/2023 documented as of this encounter Care Teams Area Plant Manager Relationship Specialty Start Date End Date None, ProviderMD PCP - General 01/09/20 10/17/21 Adali Quezada FNP-BC [address] [place] [address] PCP - General NURSE PRACTITIONER 10/18/21 06/08/23 None, ProviderMD PCP - General UNKNOWN PHYSICIAN SPECIALTY 06/09/23 Kel Shaikh, COMPANY DANCER [address] [place] [address] PCP - General NURSE PRACTITIONER 10/06/23 documented as of this encounter
--- OUTSIDE RECORDS SUMMARY | 2024-09-11 00:37 | XMS_ITS | Encounter Summary ---
Author Organization [facility] Address [facility] [place] [address] Care Team Providers Care Consumer Insight Manager Name Role Phone None, Provider MD Primary Care Provider Kel Salcedo NP Primary Care Provider [phone] Encounter Details Date Type Department Care Team (Late st Contact Info) Description 06/16/2023 Hospital Follow-up Call [facility] Care Unit [address] [place] [address] Dariela Srinivasan RN Social History Tobacco Use Types Packs/Day Years Used Date Smoking Tobacco: Every Day Cigarettes Smokeless Tobacco: Never Alcohol Use Standard Drinks/Week Comments Not Currently 0 (1 standard drink = 0.6 oz pur e alcohol) [facility] Utilities Answer Date Recorded In the past 12 months has e electric, gas, oil, or water company threatened to shut off services in your home? Yes 06/09/2023 Humiliation, Afraid, Rape, and Kick questionnair e Answer Date Recorded Within the last year, have y ou been afraid of your partner or ex-partner? Yes 06/09/2023 Within the last year, have y ou been humiliated or emotionally abused in other ways by your partner or ex-partner? Yes Within the last year, have y ou been kicked, hit, slapped, or otherwise physically hurt by your partner or ex-partner? No 06/09/2023 Within the last year, have y ou been raped or forced to have any kind of sexual activity by your partner or ex-partner? No 06/09/2023 Overall Financial Resource Strain (CARDIA) Answe r Date Recorded How hard is it for you to pa y for the very basics like food, housing, medical care, and heating? Very hard 06/09/2023 Hunger Vital Sign Answer Date Recorded Within the past 12 months, y ou worried that your food would run out before you got the money to buy more. Often true 06/09/19 24 Within the past 12 months, t he food you bought just didn't last and you didn't have money to get more. Often true 06/09/2023 PRAPARE - Transportation Answer Date Re corded In the past 12 months, has l ack of transportation kept you from medical appointments or from getting medications? Yes 05/29 In the past 12 months, has l ack of transportation kept you from meetings, work, or from getting things needed for daily living? Yes 06/09/2023 Housing Stability Vital Sign Answer [...] place to sleep or slept in a skilled nursing (including now)? Yes 06/09/2023 Comments No Sex and Gender Information Value Date Recorded Sex Assigned at Not on file Legal Sex Female 8:38 PM CDT Gender Identity Not on file Sexual Orientation Not on file documented as of this encounter Functional Status * Are you deaf or do you have serious difficulty hearing Answer Date of Assessment Author Status No 06/08/2023 7:01 PM Yani Roper RN Active * Are you blind or do you have serious difficulty seeing, even when wearing glasses? Answer Date of Assessment Author Status No 06/08/2023 7:01 PM Yani Roper RN Active * Do you have serious difficulty walking or climbing stairs? Answer Date of Assessment Author Status No 06/08/2023 7:01 PM Yani Roper RN Active * Do you have difficulty dressing or bathing? Answer Date of Assessment Author Status No 06/08/2023 7:01 PM Yani Roper RN Active * Because of a physical, mental, or emotional condition, do you have difficulty doing errands alone such as visiting a doctor's office or shopping? Answer Date of Assessment Author Status No 06/08/2023 7:01 PM Yani Roper RN Active documented as of this encounter Mental Status * Because of a physical, mental, or emotional condition, do you have serious difficulty concentrating, remembering, or making decisions? Answer Entry Date Author Status No 06/08/2023 7:01 PM Yani Roper RN Active documented in this encounter Plan of Treatment Not on file documented as of this encounter Visit Diagnoses Not on filedocumented in this encounter Additional Health Concerns Infection Onset Date Last Indicated Resolved Time MRSA 10/06/2023 10/06/2023 documented as of this encounter Care Teams Consumer Insight Manager Relationship Specialty Start Date End Date None, Provider, PCP - General UNKNOWN PHYSICIAN SPECIALTY 06/09/23 Kel Shaikh, TIMBER FRAMER HELPER [address] [place] [address] PCP - General NURSE PRACTITIONER 10/06/23 documented as of this encounter
--- OUTSIDE RECORDS SUMMARY | 2024-09-11 00:38 | XMS_ITS | Patient Health Record ---
Author Organization [facility] Address [address] [place] [address] Care Team Providers Care Inspection Manager Name Role Phone Melinda Pastrana Primary Care Provider Reason For Referral No Information Plan Of Treatment No Information
--- NOTE | 2024-09-11 00:42 | ED_ITS ---
HPI - General Adult General Chief complaint: Skin/Abscess/Foreign Body Stated complaint: Foreign object in stool Time Seen by Provider: 09/11/24 00:41 Source: patient and family ( mother) Mode of arrival: ambulatory Limitations: no limitations History of Present Illness HPI narrative: patient 38-year-old white female brought in by her mother complains of a rash on her arms her trunk and legs scabs she has had for months and she is wondering if her sugars high. She is insulin dependent diabetic with peripheral neuropathy on insulin. however she has not taken her insulin in over 2 days or checked her sugar. She says she keeps forgetting to take it. She has a history of methamphetamine abuse but says she has been clean for months. She also came in because she thought she saw worms in her stool tonight and brought in this sample to be tested. She had 1 hard stool and loose stool watery nonbloody that she thought had rooms in it and so brought a sample. Denies abdominal pain chest pain shortness of breath. She has had nonproductive runny nose denies any sore throat swelling other lumps or bumps. denies any other complaints. Related Data Home Medications Medication Instructions Recorded Confirmed Last Taken Type modafinil 100 mg tablet 100 mg PO DAILY 10/05/23 07/06/24 01/29/24 History clonidine HCl 0.1 mg tablet 0.1 mg PO TID 01/08/24 07/06/24 01/29/24 History omeprazole 20 mg capsule,delayed 40 mg PO DAILY 04/26/24 07/06/24 Unknown History release prazosin 1 mg capsule 2 mg PO HS 04/26/24 07/06/24 Unknown History topiramate 100 mg tablet 100 mg PO DAILY 04/26/24 07/06/24 Unknown History bupropion HCl 150 mg 24 hr tablet, 300 mg PO ONCE 05/13/24 09/11/24 Unknown History extended release cyclobenzaprine 10 mg tablet 10 mg PO BID 05/13/24 07/06/24 Unknown History ondansetron 8 mg disintegrating 8 mg PO Q12H 05/13/24 07/06/24 Unknown History tablet Allergies Allergy/AdvReac Type Severity Reaction Status Date / Time acetaminophen (From [place]) AdvReac Intermediate Nausea Verified 09/11/24 01:08 hydrocodone (From [place]) AdvReac Intermediate Nausea Verified 09/11/24 01:08 Review of Systems 2 Review of Systems: All systems reviewed & are unremarkable except as noted in HPI and below PMFSH Past Medical History Medical History Hepatitis C Surgical History Surgical History History of bilateral tubal ligation Social History Social History Smoking packs per day: 0.5 Smoking cigarettes per day: 10.0 Years smoked: 20 Smoking pack-years: 10.00 Smoking status: Current every day smoker Tobacco type: cigarettes Alcohol intake: current Alcohol use details: Socially Substance use: current Substance use type: methamphetamine Do You Feel Safe in your Home?: Yes Lack of Transportation: YES Lack of Food: Sometimes True Current Housing: I Have Housing Concerned About Future Housing: No Difficulty Paying Gas/Electric Bills: No Difficulty Paying for Meds: No Currently Unemployed: YES Education: Trade/Vocational Certificate Difficulty w/ Childcare or Family Care: No Exam 2 Narrative: White female patient with no apparent distress. Head normocephalic, atraumatic. Eyes conjunctiva pink sclera nonicteric. Extraocular movements are intact. Ears externally normal. Oropharynx is clear with moist mucous membranes without exudates. Neck is supple nontender no lymphadenopathy. Back is nontender. Lungs are clear. Heart is regular rate and rhythm without murmurs gallops or rubs. Chest wall nontender. Back is nontender. Abdomen is soft and nontender no hepatosplenomegaly or masses no CVA tenderness no abdominal bruits. Extremities no cyanosis clubbing or edema. Skin is warm and dry. She has a few scattered scabs on her arms left leg and trunk. None of these look infected. Neurological patient is alert and oriented x4. Motor and sensory grossly intact. Gait is normal. Course Vital Signs Vital signs: Vital Signs Temperature 36.9 C 09/11/24 00:35 Pulse Rate 104 H 09/11/24 00:35 Respiratory Rate 22 H 09/11/24 00:35 Blood Pressure 151/96 H 09/11/24 00:35 Pulse Oximetry 98 09/11/24 00:35 Oxygen Delivery Room Air 09/11/24 00:35 Temperature 36.9 C 09/11/24 00:35 Pulse Rate 104 H 09/11/24 00:35 Respiratory Rate 22 H 09/11/24 00:35 Blood Pressure 151/96 H 09/11/24 00:35 Pulse Oximetry 98 09/11/24 00:35 Oxygen Delivery Room Air 09/11/24 00:35 Medical Decision Making MDM Narrative Medical decision making narrative: Patient placed in room: Three with her mother History and physical was performed. Accu-Chek was over 500 Sodium 126 glucose 742 chloride 97 Osmo 297, calcium 7.9 AST 43 ALT 50 rest of her CMP was normal. Normal lipase normal pH, alcohol, and acetone WBCs 4.7 H&H 9.9 and 31.4 with normal platelets Accu-Chek:325 Independent Historian: mother External Source Review: Differential Dx includes but not limited to: DKA hyperglycemia electrolyte imbalance parasite infection Medications were Reviewed: home meds reviewed Medications given: normal saline 1 L X2 insulin 10 units regular Humulin IV Independently Interpreted by me: labs independently interpreted by me. Shared decision Making: evaluation was discussed all questions were asked and answered and patient agreed with the plan. She should set her alarm clock on her phone twice a day to take her insulin as that is the reason she says she does not take her insulin. I forget . Social Situation Impacting Patients Care: Insulin-dependent diabetic DISCHARGE DIAGNOSIS: hyperglycemic noncompliance with medical management DISPOSITION : discharge home CONDITION AT DISCHARGE: stable Vital Signs Vital Signs: Vital Signs Temperature 36.9 C 09/11/24 00:35 Pulse Rate 104 H 09/11/24 00:35 Respiratory Rate 22 H 09/11/24 00:35 Blood Pressure 151/96 H 09/11/24 00:35 Pulse Oximetry 98 09/11/24 00:35 Oxygen Delivery Room Air 09/11/24 00:35 Temperature 36.9 C 09/11/24 00:35 Pulse Rate 104 H 09/11/24 00:35 Respiratory Rate 22 H 09/11/24 00:35 Blood Pressure 151/96 H 09/11/24 00:35 Pulse Oximetry 98 09/11/24 00:35 Oxygen Delivery Room Air 09/11/24 00:35 Lab Data 09/11/24 01:20 09/11/24 01:20 Labs: Lab Results 09/11/24 09/11/24 09/11/24 Range/Units 00:45 00:49 01:20 WBC 4.7 L (4.8-10.8) K/mm3 RBC 3.93 L (4.20-5.40) M/mm3 Hgb 9.9 L (12.0-15.0) g/dL Hct 31.4 L (35.0-49.0) % MCV 79.9 (78.0-102.0) fL MCH 25.2 L (27.0-31.0) pg MCHC 31.5 L (32-36) g/dL RDW 13.6 (11.6-14.4) % Plt Count 256 (150-420) K/mm3 MPV 10.6 (9.2-11.8) fl Sodium 126 L (137-145) mmol/L Potassium 4.0 (3.4-5.0) mmol/L Chloride 97 L (98-107) mmol/L Carbon Dioxide 23 (22-30) mmol/L Anion Gap 6 (4-12) mmol/L BUN 10 (7-17) mg/dL Creatinine 0.70 (0.7-1.0) mg/dL Estim Creat Clear Calc 83 ml/min Estimated GFR > 60 (59 - ) Glucose 742 H* (65-110) mg/dL POC Capillary Glucose > 450 H (65-105) mg/dl Calculated Osmolality 297 H (285-295) mOsm/kg Lactic Acid 1.0 (0.4-2.0) mmol/L Calcium 7.9 L (8.4-10.2) mg/dL Magnesium 1.6 (1.6-2.3) mg/dL Total Bilirubin 0.5 (0.2-1.3) mg/dL AST 43 H (14-36) U/L ALT 50 H (6-35) U/L Alkaline Phosphatase 107 (38-126) U/L Total Protein 6.3 (6.3-8.2) g/dL Albumin 3.7 (3.5-5.1) g/dL Lipase 140 (23-300) U/L Urine Color Light yellow (Yellow) Urine Appearance Clear (Clear) Urine pH 7.0 (5.0-8.0) Ur Specific [place] <= 1.005 L (1.010-1.020) Urine Protein Negative (Negative) Urine Glucose (UA) 3+ H (Negative) Urine Ketones Negative (Negative) Ur Blood (Man) Negative (Negative) Urine Nitrate Negative (Negative) Urine Bilirubin Negative (Negative) Urine Urobilinogen 0.2 (0.2-1.0) mg/dL Leukocyte Esterase Rfl Negative (Negative) SHAHID/UL Urine Test Negative Urine Opiates Screen Negative (Negative) Urine Methadone Screen Negative (Negative) Ur Barbiturates Screen Negative (Negative) Ur Phencyclidine Scrn Negative (Negative) Ur Amphetamine Screen Positive A (Negative) U Benzodiazepines Scrn Negative (Negative) Urine Cocaine Screen Negative (Negative) U Cannabinoids Screen Negative (Negative) Ethyl Alcohol < 10 (<10) mg/dL Acetone Level Negative (Negative) 09/11/24 Range/Units 03:06 WBC (4.8-10.8) K/mm3 RBC (4.20-5.40) M/mm3 Hgb (12.0-15.0) g/dL Hct (35.0-49.0) % MCV (78.0-102.0) fL MCH (27.0-31.0) pg MCHC (32-36) g/dL RDW (11.6-14.4) % Plt Count (150-420) K/mm3 MPV (9.2-11.8) fl Sodium (137-145) mmol/L Potassium (3.4-5.0) mmol/L Chloride (98-107) mmol/L Carbon Dioxide (22-30) mmol/L Anion Gap (4-12) mmol/L BUN (7-17) mg/dL Creatinine (0.7-1.0) mg/dL Estim Creat Clear Calc ml/min Estimated GFR (59 - ) Glucose (65-110) mg/dL POC Capillary Glucose 325 H (65-105) mg/dl Calculated Osmolality (285-295) mOsm/kg Lactic Acid (0.4-2.0) mmol/L Calcium (8.4-10.2) mg/dL Magnesium (1.6-2.3) mg/dL Total Bilirubin (0.2-1.3) mg/dL AST (14-36) U/L ALT (6-35) U/L Alkaline Phosphatase (38-126) U/L Total Protein (6.3-8.2) g/dL Albumin (3.5-5.1) g/dL Lipase (23-300) U/L Urine Color (Yellow) Urine Appearance (Clear) Urine pH (5.0-8.0) Ur Specific [place] (1.010-1.020) Urine Protein (Negative) Urine Glucose (UA) (Negative) Urine Ketones (Negative) Ur Blood (Man) (Negative) Urine Nitrate (Negative) Urine Bilirubin (Negative) Urine Urobilinogen (0.2-1.0) mg/dL Leukocyte Esterase Rfl (Negative) SHAHID/UL Urine Test Urine Opiates Screen (Negative) Urine Methadone Screen (Negative) Ur Barbiturates Screen (Negative) Ur Phencyclidine Scrn (Negative) Ur Amphetamine Screen (Negative) U Benzodiazepines Scrn (Negative) Urine Cocaine Screen (Negative) U Cannabinoids Screen (Negative) Ethyl Alcohol (<10) mg/dL Acetone Level (Negative) ABG Data ABG results: 09/11/24 01:23 VBG pH 7.42 VBG pCO2 34.3 L VBG pO2 52.5 H VBG HCO3 21.9 L O2 Delivery Device Room air O2 Liters/Min Not Reportable Discharge Plan Discharge Clinical Impression: Acute hyperglycemia Diabetes type 1, uncontrolled Qualifiers: Glycemic state: with hyperglycemia Qualified Code(s): E10.65 - Type 1 diabetes mellitus with hyperglycemia Patient Disposition: Home Condition: Stable Instructions: Diabetic Hyperglycemia (ED) Additional Instructions: take her long-acting insulin when you get home increase her fluids by mouth start setting your phone alarm twice a day so the you do not forget to take your insulin as prescribed. Follow-up with your primary care provider this week. Return if you get worse or develops any new symptoms Patient Language: Setswana Prescriptions: No Action modafinil 100 mg tablet 100 mg PO DAILY bupropion HCl 150 mg tablet extended release 24 hr 300 mg PO ONCE omeprazole 20 mg capsule,delayed release(DR/EC) 40 mg PO DAILY topiramate 100 mg tablet 100 mg PO DAILY prazosin 1 mg capsule 2 mg PO HS ferrous sulfate 325 mg (65 mg iron) tablet 325 mg PO BID Qty: 60 2RF cyclobenzaprine 10 mg tablet 10 mg PO BID ondansetron 8 mg tablet,disintegrating 8 mg PO Q12H (DME) blood-glucose meter [Accu-Chek Guide Glucose Meter] Misc See Rx Instructions .Route Qty: 1 0RF Rx Instructions: QID (DME) lancets [Accu-Chek Softclix Lancets] Misc See Rx Instructions .Route Qty: 200 3RF Rx Instructions: QID insulin glargine [Basaglar KwikPen U-100 Insulin] 100 unit/mL (3 mL) insulin pen 15 unit subcut BID Qty: 15 3RF insulin lispro 100 unit/mL insulin pen See Rx Instructions subcut TID MDD 30 units Qty: 15 3RF Rx Instructions: SS BS 150-200: 2 units; BS 201-250: 4 units; BS 251-300: 6 units; 301-350: 8 units; 351-400: 10 units (DME) blood-glucose meter [OneTouch Ultra2 Meter] Misc See Rx Instructions .Route Qty: 1 0RF Rx Instructions: As directed mupirocin 2 % ointment 1 applic topical BID Qty: 22 0RF clonidine HCl 0.1 mg tablet 0.1 mg PO TID (DME) Accu-Chek Guide test strips Strip See Rx Instructions .Route Qty: 100 3RF Rx Instructions: QID (DME) lancets [OneTouch UltraSoft 2 Lancet] 30 gauge misc See Rx Instructions .Route Qty: 100 0RF Rx Instructions: QID Follow-up/Referrals: Filiberto Miranda MD [Primary Care Provider] -
[2024-09-11 00:47] LABS: Glucose Point of Care > 450 mg/dl (65-105)
--- NOTE | 2024-09-11 00:58 | PC.NURSE ---
DR TOVAR AT THE BEDSIDE.
[2024-09-11] MEDS: SODIUM CHLORIDE 0.9% IV 1,000 ML 999 ML IV CONT ×2 (01:01→02:21)
--- NOTE | 2024-09-11 01:10 | PC.NURSE ---
WARM BLANKET GIVEN
--- NOTE | 2024-09-11 01:14 | PC.NURSE ---
STOOL SAMPLE BEING TAKEN DOWN TO LAB BY TECH. VERNON PABLO WITH LAB AT THE BEDSIDE
[2024-09-11 01:24] LABS: Hematocrit 31.4 % (35.0-49.0); Hemoglobin 9.9 g/dL (12.0-15.0); Mean Corpuscular HGB Conc 31.5 g/dL (32-36); Mean Corpuscular Hemoglobin 25.2 pg (27.0-31.0); Mean Corpuscular Volume 79.9 fL (78.0-102.0); Mean Platelet Volume 10.6 fl (9.2-11.8); Platelet Count Result 256 K/mm3 (150-420); Red Blood Count 3.93 M/mm3 (4.20-5.40); Red Cell Distribution Width 13.6 % (11.6-14.4); White Blood Count 4.7 K/mm3 (4.8-10.8)
[2024-09-11 01:26] LABS: HCO3 VBG 21.9 mEq/l (24.0-30.0); PCO2 VBG 34.3 mmHg (42.0-48.0); PO2 VBG 52.5 mmHg (35.0-45.0); pH VBG 7.42 (7.33-7.43)
[2024-09-11 01:33] LABS: Acetone Negative (Negative)
[2024-09-11 01:34] LABS: Device ROOM AIR
--- OUTSIDE RECORDS SUMMARY | 2024-09-11 01:40 | XMS_ITS | Clinical Summary ---
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 DKA (diabetic ketoacidosis) ([facility]) Shock ([facility]) 10/06/2023 Sepsis without acute organ dysfunction ([facility]) 06/08/2023 Sepsis ([facility]) 06/08/2023 Immunizations Immunization Administration Dates Next Due [...] drink = 0.6 oz pur e alcohol) [facility] Utilities Answer Date Recorded In the past 12 months has e [employer], oil, or water [employer] threatened to shut off services in your [...] place to sleep or slept in a senior care (including now)? Yes 06/09/2023 Housing Stability Vital Sign Answer Michael e Recorded In the last 12 months, was t here a time when you were not able to pay the mortgage or rent on time? Yes 04/26/2024 In the past 12 months, how m any times have you moved where you were living? 3 04/26/2024 At any time in the past 12 m [facility], were you homeless or living in a senior care (including now)? Yes 04/26/2024 Comments No Sex and Gender Information Value Date Recorded Sex Assigned at Not on file Legal Sex Female 8:38 PM CDT Gender Identity Not on file Sexual Orientation Not on file Last Filed Vital Signs Vital Sign Reading Time Taken Comments Blood Pressure 117/65 04/29/2024 7:40 AM UNISAW OPERATOR Pulse 75 04/29/2024 7:40 AM UNISAW OPERATOR Temperature 36.7 C (98.1 F) 04/29/2024 7:40 AM UNISAW OPERATOR Respiratory Rate 17 04/29/2024 7:40 AM UNISAW OPERATOR Oxygen Saturation 98% 04/29/2024 7:40 AM UNISAW OPERATOR Inhaled Oxygen Concentration - - Weight 45.5 kg (100 lb 5 oz) 04/26/2024 7:16 PM UNISAW OPERATOR Height 167.6 cm (5' 6 ) 04/26/2024 7:14 PM UNISAW OPERATOR Body Mass Index 16.19 04/26/2024 7:14 PM UNISAW OPERATOR Plan of Treatment Health Maintenance Due Date [...] Living Aide Services Utilities 04/27/2024 7:42 AM UNISAW OPERATOR [facility] Home Living Aide Services Utilities 04/27/2024 7:42 AM UNISAW OPERATOR [facility] Food Insecurity Services, Food Pantry, Home Living Aide Services Food Insecurity, Utilities 04/27/2024 7:42 AM UNISAW OPERATOR from Last 12 Months Procedures Procedure Name Priority Date/Time Associated Diagnosis Comments HEMOGLOBIN, GLYCOSYLATED Routine 04/26/2024 8:42 PM UNISAW OPERATOR LIPID PANEL STAT 10/06/2023 5:04 PM CDT from Last 3 Months or Most Recently Relevant to Health Maintenance Results * (ABNORMAL) HEMOGLOBIN, GLYCOSYLATED (04/26/2024 8:42 PM UNISAW OPERATOR) HGB A1C 12.2(H) <5.7 % 04/26/2024 9:32 PM UNISAW OPERATOR [facility] ESTIMATED AVG GLUCOSE 303(H) 74 - 114 MG/DL 04/26/2024 9:32 PM UNISAW OPERATOR [facility] 04/26/2024 8:42 PM UNISAW OPERATOR us Georgiana Garner MD LABORATORY F inal Result [facility] [address] [place] [address], [id number] * (ABNORMAL) LIPID PANEL (10/06/2023 5:04 PM CDT) CHOLESTEROL 128 MG/DL 10/06/2023 5:51 PM CDT [facility] Comment:DESIRABLE: <200 TRIGLYCERIDES 175 MG/DL 10/06/2023 5:51 PM CDT [facility] Comment:150-199 BORDERLINE H IGH HDL 37(L) >49 MG/DL 10/06/2023 5:51 PM CDT [facility] LDL (CALCULATED) 56 MG/DL 10/06/19 5:51 PM CDT [facility] Comment:<100 OPTIMAL VLDL CALCULATION 35 MG/DL 10/06/19 5:51 PM CDT [facility] Comment:REFERENCE RANGE NOT ESTABLISHED CHOL/HDL RATIO 3.5 10/06/2023 5:51 PM CDT [facility] Comment:REFERENCE RANGE NOT ESTABLISHED LDL/HDL 1.5 10/06/2023 5:51 PM CDT [facility] Comment:REFERENCE RANGE NOT ESTABLISHED NON HDL CHOLESTEROL 91 MG/DL 10/06/2023 5:51 PM CDT [facility] Comment:REFERENCE RANGE NOT ESTABLISHED 10/06/2023 5:0 4 PM CDT Esteban Hills MD LABORATORY Final R esult [facility] [address] [place] [address], [id number] from Last 3 Months or Most Recently Relevant to Health Maintenance Additional Health Concerns Infection Onset Date Last Indicated MRSA 10/06/2023 10/06/2023 Insurance [place] Advance Directives * Full Code (Latest Code [...] 6:51 PM 06/12/2023 4:09 PM Care Teams Drapery Hemmer Automatic Relationship Specialty Start Date End Date Kel Shaikh, BERNARDO [address] [place] [address] PCP - General NURSE PRACTITIONER 10/06/23
--- OUTSIDE RECORDS SUMMARY | 2024-09-11 01:40 | XMS_ITS | Encounter Summary ---
Author Organization [facility] Address [facility] [place] [address] Care Team Providers Care Service Car Driver Name Role Phone None, Provider MD Primary Care Provider Kel Salcedo NP Primary Care Provider [phone] Encounter Details Date Type Department Care Team (Late st Contact Info) Description 06/16/2023 Hospital Follow-up Call [facility] Unit [address] [place] [address] Dariela Srinivasan RN Social History Tobacco Use Types Packs/Day Years Used Date Smoking Tobacco: Every Day Cigarettes Smokeless Tobacco: Never Alcohol Use Standard Drinks/Week Comments Not Currently 0 (1 standard drink = 0.6 oz pur e alcohol) [facility] Utilities Answer Date Recorded In the [...] place to sleep or slept in a care home (including now)? Yes 06/09/2023 Comments No Sex [...] documented as of this encounter Care Teams Service Car Driver Relationship Specialty Start Date End Date None, Provider, PCP - General UNKNOWN PHYSICIAN SPECIALTY 06/09/23 Kel Shaikh, LITHOGRAPHIC PLATEMAKER [address] [place] [address] PCP - General NURSE PRACTITIONER 10/06/23 documented as of this encounter
--- OUTSIDE RECORDS SUMMARY | 2024-09-11 01:40 | XMS_ITS | Encounter Summary ---
Author Organization [facility] Address [facility] [place] [address] Care Team Providers Care Transfusion Aide Name Role Phone None, Provider Primary Care Provider Adali De La RosaHEIDY Primary Care Provider [phone] None, Provider Primary Care Provider Kel Salcedo IT WEB DEVELOPMENT CONSULTANT Primary Care Provider [phone] Encounter Details Date Type Department Care Team (Late st Contact Info) Description 10/03/2018 Abstract [facility] CONVERSION [address] [place] [address] , Generic Conversion, Social History Tobacco Use [...] documented as of this encounter Care Teams Transfusion Aide Relationship Specialty Start Date End Date None, ProviderMD PCP - General 01/09/20 10/17/21 Adali Quezada FNP-BC [address] [place] [address] PCP - General NURSE PRACTITIONER 10/18/21 06/08/23 None, ProviderMD PCP - General UNKNOWN PHYSICIAN SPECIALTY 06/09/23 Kel Shaikh, IT WEB DEVELOPMENT CONSULTANT [address] [place] [address] PCP - General NURSE PRACTITIONER 10/06/23 documented as of this encounter
[2024-09-11 01:48] LABS: Ethanol < 10 mg/dL (<10)
[2024-09-11 02:04] LABS: Anion Gap 6 mmol/L (4-12); Carbon Dioxide 23 mmol/L (22-30); Chloride 97 mmol/L (98-107); Sodium 126 mmol/L (137-145)
[2024-09-11 02:05] LABS: Alanine Aminotransferase 50 U/L (6-35); Albumin Level 3.7 g/dL (3.5-5.1); Alkaline Phosphatase 107 U/L (38-126); Aspartate Amino Transferase 43 U/L (14-36); Bilirubin,Total 0.5 mg/dL (0.2-1.3); Calcium 7.9 mg/dL (8.4-10.2); Estimated CRCL calculation 83 ml/min; Estimated Glomerular Filt Rate > 60; Magnesium 1.6 mg/dL (1.6-2.3); Total Protein 6.3 g/dL (6.3-8.2)
--- NOTE | 2024-09-11 02:05 | PC.NURSE ---
SENT PATIENT TO THE BATHROOM FOR A URINE SAMPLE
[2024-09-11 02:06] LABS: Blood Urea Nitrogen 10 mg/dL (7-17); Lipase 140 U/L (23-300)
[2024-09-11 02:08] LABS: Glucose 742 mg/dL (65-110); Osmolality Calculated 297 mOsm/kg (285-295)
[2024-09-11 02:20] LABS: Add Urine Microscopic? NO; Appearance Urine Clear (Clear); Bilirubin Urine Negative (Negative); Blood Urine Negative (Negative); Color Urine Light Yellow (Yellow); Glucose Urine UA 3+ (Negative); Ketones Urine Negative (Negative); Leukocyte Esterase Ur Negative LEU/UL (Negative); Nitrate Urine Negative (Negative); Protein Urine Negative (Negative); Specific Grav Ur <= 1.005 (1.010-1.020); Urobilinogen Urine 0.2 mg/dL (0.2-1.0)
[2024-09-11] MEDS: INSULIN HUMAN REGULAR (*BKC) 1,000 UNITS/10 ML VIAL 10 UNITS IV PUSH (02:21)
--- NOTE | 2024-09-11 02:36 | PC.NURSE ---
EDUCATION WAS PROVIDED REGARDING DIABETIC CARE AT HOME AND THE IMPORTANCE OF TAKING HER MEDICATIONS DAILY WELL CHECKING HER BLOOD SUGARS. PATIENT AND MOTHER BOTH VERBALIZED UNDERSTANDING. DR TOVAR AT THE BEDSIDE
[2024-09-11 02:44] LABS: Amphetamine Screen Urine Positive (Negative); Barbiturate Screen Urine Negative (Negative); Benzodiazepines Screen Urine Negative (Negative); Cannabinoid Screen Urine Negative (Negative); Cocaine Screen Urine Negative (Negative); Methadone Screen Urine Negative (Negative); Opiate Screen Urine Negative (Negative); Phencyclidine Screen Urine Negative (Negative)
[2024-09-11 02:59] LABS: Pregnancy On Board Control Positive; Urine Pregnancy Test Negative
[2024-09-11 03:09] LABS: Glucose Point of Care 325 mg/dl (65-105)
[2024-09-11 03:27] VITALS: BP 126/80; PULSE 92; RESP 18; O2SAT 100
== END 2024-09-11 03:27 | disposition home or self-care (01) ==
PROVIDERS: Emergency Provider Emergency Medicine; PCP Internal Medicine
DX: E10.65 Type 1 diabetes mellitus with hyperglycemia (principal); F17.210 Nicotine dependence, cigarettes, uncomplicated; Z79.4 Long term (current) use of insulin
CPT/HCPCS: 36415; 80053; 80307; 81003; 81025; 82010; 82077; 82803; 82948; 83605; 83690; 83735; 85027; 87177; 87209; 96361; 96374; 99284; J1815; J7030

== ENCOUNTER 2024-10-26 22:00 | Emergency (ER) | payer OTHER, SELFPAY ==
--- OUTSIDE RECORDS SUMMARY | 2024-10-26 22:02 | XMS_ITS | Encounter Summary ---
Author Organization [facility] Address [facility] [place] [address] Care Team Providers Care Grants Specialist Name Role Phone None, Provider Primary Care Provider Adali De La Rosa Primary Care Provider [phone] None, Provider Primary Care Provider Kel Salcedo CIDER PRESS OPERATOR Primary Care Provider [phone] Encounter Details Date Type Department Care Team (Late st Contact Info) Description 10/03/2018 Abstract [facility] CONVERSION [address] [place] [address] , Generic Conversion, Social History Tobacco Use [...] documented as of this encounter Care Teams Grants Specialist Relationship Specialty Start Date End Date None, ProviderMD PCP - General 01/09/20 10/17/21 Adali Quezada FNP-BC [address] [place] [address] PCP - General NURSE PRACTITIONER 10/18/21 06/08/23 None, ProviderMD PCP - General UNKNOWN PHYSICIAN SPECIALTY 06/09/23 Kel Shaikh, CIDER PRESS OPERATOR [address] [place] [address] PCP - General NURSE PRACTITIONER 10/06/23 documented as of this encounter
--- OUTSIDE RECORDS SUMMARY | 2024-10-26 22:02 | XMS_ITS | Clinical Summary ---
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 DKA (diabetic ketoacidosis) ([facility]) Shock ([facility]) 10/06/2023 Sepsis without acute organ dysfunction ([facility]) 06/08/2023 Sepsis ([facility]) 06/08/2023 Immunizations Immunization Administration Dates [...] drink = 0.6 oz pur e alcohol) [facility] Utilities Answer Date Recorded In the past 12 months has e [employer], oil, or water [employer] threatened to shut off services in your [...] place to sleep or slept in a fdc (including now)? Yes 06/09/2023 Housing Stability Vital Sign Answer Michael e Recorded In the last 12 months, was t here a time when you were not able to pay the mortgage or rent on time? Yes 04/26/2024 In the past 12 months, how m any times have you moved where you were living? 3 04/26/2024 At any time in the past 12 m [facility], were you homeless or living in a fdc (including now)? Yes 04/26/2024 Comments No Sex and Gender Information Value Date Recorded Sex Assigned at Not on file Legal Sex Female 8:38 PM CDT Gender Identity Not on file Sexual Orientation Not on file Last Filed Vital Signs Vital Sign Reading Time Taken Comments Blood Pressure 117/65 04/29/2024 7:40 AM UTILITY TECHNICIAN Pulse 75 04/29/2024 7:40 AM UTILITY TECHNICIAN Temperature 36.7 C (98.1 F) 04/29/2024 7:40 AM UTILITY TECHNICIAN Respiratory Rate 17 04/29/2024 7:40 AM UTILITY TECHNICIAN Oxygen Saturation 98% 04/29/2024 7:40 AM UTILITY TECHNICIAN Inhaled Oxygen Concentration - - Weight 45.5 kg (100 lb 5 oz) 04/26/2024 7:16 PM UTILITY TECHNICIAN Height 167.6 cm (5' 6) 04/26/2024 7:14 PM UTILITY TECHNICIAN Body Mass Index 16.19 04/26/2024 7:14 PM UTILITY TECHNICIAN Plan of Treatment Health Maintenance Due Date [...] Living Aide Services Utilities 04/27/2024 7:42 AM UTILITY TECHNICIAN [facility] Home Living Aide Services Utilities 04/27/2024 7:42 AM UTILITY TECHNICIAN [facility] Food Insecurity Services, Food Pantry, Home Living Aide Services Food Insecurity, Utilities 04/27/2024 7:42 AM UTILITY TECHNICIAN from Last 12 Months Procedures Procedure Name Priority Date/Time Associated Diagnosis Comments HEMOGLOBIN, GLYCOSYLATED Routine 04/26/2024 8:42 PM UTILITY TECHNICIAN LIPID PANEL STAT 10/06/2023 5:04 PM CDT from Last 3 Months or Most Recently Relevant to Health Maintenance Results * (ABNORMAL) HEMOGLOBIN, GLYCOSYLATED (04/26/2024 8:42 PM UTILITY TECHNICIAN) HGB A1C 12.2(H) <5.7 % 04/26/2024 9:32 PM UTILITY TECHNICIAN [facility] ESTIMATED AVG GLUCOSE 303(H) 74 - 114 MG/DL 04/26/2024 9:32 PM UTILITY TECHNICIAN [facility] 04/26/2024 8:42 PM UTILITY TECHNICIAN us Georgiana Garner MD LABORATORY F inal Result [facility] [address] [place] [address], [id number] * (ABNORMAL) LIPID PANEL (10/06/2023 5:04 PM CDT) CHOLESTEROL 128 MG/DL 10/06/2023 5:51 PM CDT [facility] Comment:DESIRABLE: <200 TRIGLYCERIDES 175 MG/DL 10/06/2023 5:51 PM CDT [facility] Comment:150-199 BORDERLINE H IGH HDL 37(L) >49 MG/DL 10/06/2023 5:51 PM CDT [facility] LDL (CALCULATED) 56 MG/DL 10/06/19 5:51 PM CDT [facility] Comment:<100 OPTIMAL VLDL CALCULATION 35 MG/DL 10/06/19 5:51 PM CDT [facility] Comment:REFERENCE RANGE NOT ESTABLISHED CHOL/HDL RATIO 3.5 10/06/2023 5:51 PM CDT [facility] Comment:REFERENCE RANGE NOT ESTABLISHED LDL/HDL 1.5 10/06/2023 5:51 PM CDT [facility] Comment:REFERENCE RANGE NOT ESTABLISHED NON HDL CHOLESTEROL 91 MG/DL 10/06/2023 5:51 PM CDT [facility] Comment:REFERENCE RANGE NOT ESTABLISHED 10/06/2023 5:04 PM CDT Esteban Hills MD LABORATORY Final R esult [facility] [address] [place] [address], [id number] from Last 3 Months or Most Recently Relevant to Health Maintenance Additional Health Concerns Infection Onset Date 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
--- OUTSIDE RECORDS SUMMARY | 2024-10-26 22:02 | XMS_ITS | Encounter Summary ---
Author Organization [facility] Address [facility] [place] [address] Care Team Providers Care Hospice Volunteer Coordinator Name Role Phone None, Provider MD Primary Care Provider Kel Salcedo NP Primary Care Provider [phone] Encounter Details Date Type Department Care Team (Late st Contact Info) Description 06/16/2023 Hospital Follow-up Call [facility] [address] [place] [address] Dariela Srinivasan RN Social History Tobacco Use Types Packs/Day Years Used Date Smoking Tobacco: Every Day Cigarettes Smokeless Tobacco: Never Alcohol Use Standard Drinks/Week Comments Not Currently 0 (1 standard drink = 0.6 oz pur e alcohol) [facility] Utilities Answer Date Recorded In the past [...] place to sleep or slept in a [place] (including now)? Yes 06/09/2023 Comments No Sex [...] documented as of this encounter Care Teams Hospice Volunteer Coordinator Relationship Specialty Start Date End Date None, Provider, PCP - General UNKNOWN PHYSICIAN SPECIALTY 06/09/23 Kel Shaikh, COURT REPORTER [address] [place] [address] PCP - General NURSE PRACTITIONER 10/06/23 documented as of this encounter
[2024-10-26 22:03] VITALS: BP 138/99; PULSE 102; RESP 16; TEMP 36.6; O2SAT 97
--- OUTSIDE RECORDS SUMMARY | 2024-10-26 22:03 | XMS_ITS ---
Author Organization [facility] Address [address] [place] [address] Care Team Providers Care Set Illustrator Name Role Phone Melinda Pastrana Primary Care Provider REASON FOR VISIT estab care Encounters Encounter Location Date Provider Diagnosis [facility] [address] [place] [address] 06/20/2023 Melinda Pastrana Plan Of Treatment No Information Progress Notes * Miya MARTINEZDOB:1985 (38 yo F)Acc No.[id number]:06/20/2023 Progress Notes Patient: Miya BEAL Provider: Wesley Pastrana DNP, FNP-C :1985 A ge:37 Y S ex:Female Date:06/20/2023 Address:[address] [place] [id number] Subjective: * Chief Complaints: * 1 . Estab care. * Medical History: Objective: Assessment: Plan: * Treatment: * * Electronic signature of Jaden Pastrana DNP, FNP-C on 10/26/2024 at 10:02 PM CDT Sign off status: Pending Visit Status: N /S (No-Show) * Provider: Wesley Pastrana DNP, FNP-C Date: 0 06/20/2023 Generated for Gaurang shirley/Gennaro/eTransmitting on: 10/26/2024 10:02 PM CDT
--- OUTSIDE RECORDS SUMMARY | 2024-10-26 22:03 | XMS_ITS | Patient Health Record ---
Author Organization [facility] Address [address] [place] [address] Care Team Providers Care Bareback Rider Name Role Phone Melinda Pastrana Primary Care Provider Reason For Referral No Information Plan Of Treatment No Information
--- NOTE | 2024-10-26 22:08 | ED_ITS ---
HPI - Wound/Laceration General Chief Complaint: Wound/Laceration Stated Complaint: Bite on Foot Time Seen by Provider: 10/26/24 22:08 Source: patient Mode of arrival: ambulatory Limitations: no limitations History of Present Illness HPI narrative: 30-year-old female with no significant past medical history presents with small lesion on the bottom of her left foot that is red currently no drainage warm to touch has a brisk pedal pulse on the left no fever chills. Onset (ago): day(s) Place: home Patient tetanus UTD: Yes Context: accidental Associated symptoms: none Related Data Home Medications ?Medication ?Instructions ?Recorded ?Confirmed ?Last Taken ?Type modafinil 100 mg tablet 100 mg PO DAILY 10/05/23 07/06/24 01/29/24 History clonidine HCl 0.1 mg tablet 0.1 mg PO TID 01/08/24 07/06/24 01/29/24 History omeprazole 20 mg capsule,delayed 40 mg PO DAILY 04/26/24 07/06/24 Unknown History release prazosin 1 mg capsule 2 mg PO HS 04/26/24 07/06/24 Unknown History topiramate 100 mg tablet 100 mg PO DAILY 04/26/24 07/06/24 Unknown History bupropion HCl 150 mg 24 hr tablet, 300 mg PO ONCE 05/13/24 09/11/24 Unknown History extended release cyclobenzaprine 10 mg tablet 10 mg PO BID 05/13/24 07/06/24 Unknown History ondansetron 8 mg disintegrating 8 mg PO Q12H 05/13/24 07/06/24 Unknown History tablet Allergies Allergy/AdvReac Type Severity Reaction Status Date / Time acetaminophen (From [place]) AdvReac Intermediate Nausea Verified 09/11/24 01:08 hydrocodone (From [place]) AdvReac Intermediate Nausea Verified 09/11/24 01:08 Review of Systems Review of Systems: All systems reviewed & are unremarkable except as noted in HPI and below PMFSH Past Medical History Medical History Hepatitis C Surgical History Surgical History History of bilateral tubal ligation Social History Social History Smoking packs per day: 0.5 Smoking cigarettes per day: 10.0 Years smoked: 20 Smoking pack-years: 10.00 Smoking status: Current every day smoker Tobacco type: cigarettes Alcohol intake: current Alcohol use details: Socially Substance use: current Substance use type: methamphetamine Do You Feel Safe in your Home?: Yes Lack of Transportation: YES Lack of Food: Sometimes True Current Housing: I Have Housing Concerned About Future Housing: No Difficulty Paying Gas/Electric Bills: No Difficulty Paying for Meds: No Currently Unemployed: YES Education: Trade/Vocational Certificate Difficulty w/ Childcare or Family Care: No Exam Const: General: healthy appearing and no acute distress Nutritional Appearance: well nourished Orientation/consciousness: patient oriented x3 Limitations: no limitations Neck: Neck: normal visual inspection, no lymphadenopathy and no meningeal signs Chest: Chest palpation & inspection: normal inspection of the chest Resp: Effort & Inspection: normal respiratory effort Auscultation: clear to auscultation bilaterally Cardio: Rate: regular rate Rhythm: regular rhythm GI: GI Palp: Yes Soft to palpation Auscultation: normal bowel sounds Back/Spine/Pelvis: Back: no CVA tenderness Skin: General skin exam: normal color Rashes: no rashes Wounds: wounds noted Other: Some lesion on the bottom of her left foot with an erythema no drainage. Neuro: General: patient oriented x3 and moves all extremities Course Course Emergency Course: Will administer a p.o. dose of Augmentin and will send antibiotics to patient's pharmacy otherwise follow-up with primary care physician if symptoms persist or worsen. Vital Signs Vital signs: Vital Signs Temperature 36.6 C 10/26/24 22:03 Pulse Rate 102 H 10/26/24 22:03 Respiratory Rate 16 10/26/24 22:03 Blood Pressure 138/99 H 10/26/24 22:03 Pulse Oximetry 97 10/26/24 22:03 Oxygen Delivery Room Air 10/26/24 22:03 Temperature 36.6 C 10/26/24 22:03 Pulse Rate 102 H 10/26/24 22:03 Respiratory Rate 16 10/26/24 22:03 Blood Pressure 138/99 H 10/26/24 22:03 Pulse Oximetry 97 10/26/24 22:03 Oxygen Delivery Room Air 10/26/24 22:03 Critical Care Time Critical Care Time Critical Care Time: No Discharge Plan Discharge Clinical Impression: Cellulitis Qualifiers: Site of cellulitis: extremity Site of cellulitis of extremity: lower extremity Laterality: left Qualified Code(s): L03.116 - Cellulitis of left lower limb Patient Disposition: Home Condition: Stable Instructions: Antibiotic Form, Cellulitis (ED) Additional Instructions: advised patient to take medication as prescribed and follow-up with primary care physician if symptoms persist or worsen. Patient Language: Turkmen Prescriptions: New amoxicillin-pot clavulanate [Augmentin] 500-125 mg tablet 1 tablet PO TID Qty: 30 0RF No Action modafinil 100 mg tablet 100 mg PO DAILY bupropion HCl 150 mg tablet extended release 24 hr 300 mg PO ONCE omeprazole 20 mg capsule,delayed release(DR/EC) 40 mg PO DAILY topiramate 100 mg tablet 100 mg PO DAILY prazosin 1 mg capsule 2 mg PO HS ferrous sulfate 325 mg (65 mg iron) tablet 325 mg PO BID Qty: 60 2RF cyclobenzaprine 10 mg tablet 10 mg PO BID ondansetron 8 mg tablet,disintegrating 8 mg PO Q12H (DME) blood-glucose meter [Accu-Chek Guide Glucose Meter] Misc See Rx Instructions .Route Qty: 1 0RF Rx Instructions: QID (DME) lancets [Accu-Chek Softclix Lancets] Misc See Rx Instructions .Route Qty: 200 3RF Rx Instructions: QID insulin glargine [Basaglar KwikPen U-100 Insulin] 100 unit/mL (3 mL) insulin pen 15 unit subcut BID Qty: 15 3RF insulin lispro 100 unit/mL insulin pen See Rx Instructions subcut TID MDD 30 units Qty: 15 3RF Rx Instructions: SS BS 150-200: 2 units; BS 201-250: 4 units; BS 251-300: 6 units; 301-350: 8 units; 351-400: 10 units (DME) blood-glucose meter [OneTouch Ultra2 Meter] Misc See Rx Instructions .Route Qty: 1 0RF Rx Instructions: As directed mupirocin 2 % ointment 1 applic topical BID Qty: 22 0RF clonidine HCl 0.1 mg tablet 0.1 mg PO TID (DME) Accu-Chek Guide test strips Strip See Rx Instructions .Route Qty: 100 3RF Rx Instructions: QID (DME) lancets [OneTouch UltraSoft 2 Lancet] 30 gauge misc See Rx Instructions .Route Qty: 100 0RF Rx Instructions: QID Follow-up/Referrals: Filiberto Miranda MD [Primary Care Provider] -
[2024-10-26 22:28] VITALS: BP 140/88; PULSE 100; RESP 18; O2SAT 99
== END 2024-10-26 22:28 | disposition home or self-care (01) ==
LOC: CHSED 22:14
PROVIDERS: Emergency Provider Emergency Medicine; PCP Internal Medicine
DX: L03.116 Cellulitis of left lower limb (principal); F17.210 Nicotine dependence, cigarettes, uncomplicated
CPT/HCPCS: 99283; A9270